=== PATIENT | male | born 1945 | race African-American/Black ===

== ENCOUNTER 2018-08-01 10:24 | Observation (INO) | payer MEDICARE, OTHER ==
[~2018-08-01] VITALS: Ht 170.2 cm; Wt 69.9 kg
[2018-08-01] MEDS ORDERED: ASPIRIN 81 MG CHEW TAB PO ONE ×2 (10:30→13:30)
[2018-08-01 11:15] LABS: INR 0.9
[2018-08-01 11:16] LABS: PARTIAL THROMBOPLASTIN TIME 30.7 seconds (23.8-35.5)
[2018-08-01 11:23] LABS: ALANINE AMINOTRANSFERASE 16 IU/L (0-55); ALBUMIN 4.1 g/dL (3.5-5.0); ALBUMIN/GLOBULIN RATIO 1.5 (0.8-2.0); ALKALINE PHOSPHATASE 73 IU/L (40-150); ANION GAP 18.1 mmol/L (8-16); BLOOD UREA NITROGEN 19 mg/dL (7-26); BUN/CREATININE RATIO 15 (6-25); CALCIUM 9.9 mg/dL (8.4-10.2); CARBON DIOXIDE 23 mmol/L (22-29); CHLORIDE 104 mmol/L (98-107); CREATINE KINASE 155 IU/L (30-200); CREATININE, SERUM 1.31 mg/dL (0.72-1.25); EST GLOMERULAR FILTRATION RATE > 60 ML/MIN (60-); GLUCOSE 181 mg/dL (74-118); POTASSIUM 4.1 mmol/L (3.5-5.1); SODIUM 141 mmol/L (136-145)
--- NOTE | 2018-08-01 11:28 | Diagnostic Imaging Report ---
EXAMINATION: CHEST 2 VIEWS INDICATION: Anterior chest pain for one week COMPARISON: Chest x-ray 05/12/2010 FINDINGS: PA and lateral views TUBES and LINES: None. LUNGS: Lungs are well inflated. There is no evidence of pneumonia or pulmonary edema. PLEURA: No pleural effusion or pneumothorax. HEART AND MEDIASTINUM: The heart is normal in size. The hilum appears more prominent compared to previous exam. The left hilum is normal. The trachea is midline. BONES AND SOFT TISSUES: No focal osseous lesions. Soft tissues are unremarkable. UPPER ABDOMEN: No free air under the diaphragm. IMPRESSION: Increasing fullness of the right hilum may be due to lymphadenopathy, vascular structures or patient positioning. Consider further characterization with CT of the chest. This can be performed on an outpatient basis. No new pulmonary findings. Signed by: Dr. Roel Saunders MD on 08/01/2018 11:25 AM
[2018-08-01 11:41] LABS: BASOPHILS % 0.5 % (0.0-1.0); EOSINOPHILS # (AUTO) 0.4 (0.0-0.4); EOSINOPHILS % 7.5 % (0.0-6.0); HEMATOCRIT 32.8 % (38.2-49.6); LYMPHOCYTES # (AUTO) 1.2 (1.0-3.2); LYMPHOCYTES % 22.2 % (18.0-39.1); MEAN CORPUSCULAR HEMOGLOBIN 32.8 pg (28-32); MEAN CORPUSCULAR HGB CONC 33.5 g/dL (31-35); MEAN CORPUSCULAR VOLUME 97.9 fL (81-99); MONOCYTES # (AUTO) 0.5 (0.2-0.8); MONOCYTES % 9.3 % (4.4-11.3); NEUTROPHILS # (AUTO) 3.4 (2.1-6.9); NEUTROPHILS % 60.3 % (38.7-80.0); PLATELET COUNT 145 x10e3/uL (140-360); RED BLOOD COUNT 3.35 x10e6/uL (4.3-5.7); RED CELL DISTRIBUTION WIDTH 11.7 % (11.7-14.4)
[2018-08-01 12:33] LABS: CLARITY,URINE CLEAR (CLEAR); COLOR,URINE YELLOW (YELLOW); KETONES,URINE NEGATIVE (NEGATIVE); LEUKOCYTE ESTERASE ,URINE NEGATIVE (NEGATIVE); NITRITE,URINE NEGATIVE (NEGATIVE); PROTEIN,URINE DIPSTICK NEGATIVE (NEGATIVE)
[2018-08-01 12:34] LABS: BILIRUBIN,URINE NEGATIVE (NEGATIVE); URINE UROBILINOGEN 0.2 mg/dL (0.2 - 1)
[2018-08-01 12:38] LABS: BACTERIA,URINE RARE /HPF; EPITHELIAL CELLS,URINE RARE /LPF; RBC,URINE 0-5 /HPF (0-5); WBC,URINE (MAN) 0-5 /HPF (0-5)
[2018-08-01] MEDS ORDERED: SODIUM CHLORIDE 0.9% 1000ML 1,000 ML IV SCH (12:55)
[2018-08-01] MEDS ORDERED: ONDANSETRON HCL INJ 2 MG/ML VIAL IV PRN ×2 (13:00→19:00)
[2018-08-01] MEDS ORDERED: ALFUZOSIN HCL10 MG PO (13:23)
[2018-08-01] MEDS ORDERED: METFORMIN HCL500 MG PO (13:23)
[2018-08-01] MEDS ORDERED: GLIMEPIRIDE2 MG PO (13:23)
[2018-08-01] MEDS ORDERED: LISINOPRIL-HCT1 EACH PO (13:23)
[2018-08-01] MEDS ORDERED: ATORVASTATIN CA10 MG PO (13:23)
[2018-08-01] MEDS ORDERED: HYDRALAZINE HCL 20 MG/ML VIAL IV ONE (14:00)
--- OUTSIDE RECORDS SUMMARY | 2018-08-01 14:16 | XMS REPORT ---
Author Author [facility] Address Unknown Phone Unavailable Care Team Providers Care Repairer Cylinder Heads Name Role Phone Loida LEAL Unavailable Unavailable Problems This patient has no known problems. Allergies, Adverse Reactions, Alerts This patient has no known allergies or adverse reactions. Medications This patient has no known medications. Results Test Description Test Time Test Comments Text Results Atomic Results Result Comments CHEST 2 VIEWS 2018-08-01 11:20:00 [place] [address] Patient Name: ZEKE YANG MR #: [id number] : 1945 Age/Sex: 73/M Req #: [id number] Adm Physician: Ordered by: LATESHA CASTELLANO NP Report #: [id number] Location: ER Room/Bed: Procedure: [id number] DX/CHEST 2 VIEWS Exam Date: Exam Time: REPORT STATUS: Signed EXAMINATION: CHEST 2 VIEWS INDICATION: Anterior chest pain for one week COMPARISON: Chest x-ray 05/12/2010 FINDINGS: PA and lateral views TUBES and LINES: None. LUNGS: Lungs are well inflated. There is no evidence of pneumonia or pulmonary edema. PLEURA: No pleural effusion or pneumothorax. HEART AND MEDIASTINUM: The heart is normal in size. The hilum appears more prominent compared to previous exam. The left hilum is normal. The trachea is midline. BONES AND SOFT TISSUES: No focal osseous lesions. Soft tissues are unremarkable. UPPER ABDOMEN: No free air under the diaphragm. IMPRESSION: Increasing fullness of the right hilum may be due to lymphadenopathy, vascular structures or patient positioning. Consider further characterization with CT of the chest. This can be performed on an outpatient basis. No new pulmonary findings. Signed by: Dr. Flaquito Saunders MD on 08/01/2018 11:25 AM Dictated By: FLAQUITO SAUNDERS MD 1125 Transcribed By: INDY on 08/01/18 1125 COPY TO: LATESHA CASTELLANO NP
[2018-08-01] MEDS ORDERED: DILTIAZEM HCL 5 MG/ML 5 ML VIAL IV ONE (14:45)
[2018-08-01] MEDS ORDERED: AMIODARONE HCL 900 MG in DEXTROSE 5% 500ML 500 ML IV ONE (15:15)
[2018-08-01] MEDS ORDERED: AMIODARONE HCL 150MG 100 ML IV ONE (15:15)
[2018-08-01] MEDS ORDERED: INSULIN LISPRO 100 UNIT/1 ML 3ML VIAL SQ SCH ×2 (16:30→21:00)
--- NOTE | 2018-08-01 16:58 | Diagnostic Imaging Report ---
EXAMINATION: CT scan of the chest without contrast. TECHNIQUE: Spiral CT images of the chest were performed from the lung apices to the level of the adrenal glands. No intravenous contrast was administered per referring physician request Coronal and sagittal reformatted images were obtained. COMPARISON: Chest radiograph earlier 08/01/2018 CLINICAL HISTORY:Right hilar fullness on chest radiograph DISCUSSION: ABSENCE OF INTRAVENOUS CONTRAST DECREASES SENSITIVITY FOR DETECTION OF FOCAL LESIONS AND VASCULAR PATHOLOGY. LINES/TUBES: None. LUNGS AND AIRWAYS: The lungs are clear. No pulmonary nodules, masses or consolidation. Trachea, mainstem bronchi, and central lobar and segmental bronchi are patent. PLEURA: No pneumothorax or pleural effusions. HEART AND MEDIASTINUM: Visualized portions of the thyroid gland are normal. Atherosclerotic calcifications of the aortic annulus and coronary arteries. Normal heart size without pericardial effusion. No ectasia or aneurysmal dilatation of the thoracic aorta. The pulmonary outflow tract is of normal caliber. No axillary, hilar, or mediastinal lymphadenopathy. Close interposition of the right superior pulmonary vein and right pulmonary artery is seen on series 2 image 58 and series 401, image 44 and likely accounts for the abnormality described on the chest radiograph. LYMPH NODES: There is no mediastinal, hilar or axillary lymphadenopathy. ABDOMEN: The visualized portions of the liver, gallbladder, pancreas, spleen, and adrenals are unremarkable. Nonspecific perinephric fat stranding of the partially visualized upper poles of the kidneys. BONES AND SOFT TISSUES: No osseous destructive lesions. Asymmetry of the sternoclavicular joints is likely chronic in nature with associated left sternoclavicular calcifications. IMPRESSION: No acute thoracic CT abnormalities. Right hilar fullness described on the comparison chest radiograph is shown to represent summation of prominent right pulmonary artery and right superior pulmonary vein. Signed by: Dr. Sherman Rodriguez M.D. on 08/01/2018 4:54 PM
[2018-08-01] MEDS ORDERED: METFORMIN HCL 500 MG TAB PO SCH (17:00)
[2018-08-01] MEDS ORDERED: DRONEDARONE 400 MG TAB PO SCH (17:00)
--- NOTE | 2018-08-01 17:45 | Consultation ---
DATE OF CONSULTATION: August 01, 2018 REASON FOR CONSULTATION: Chest pain and atrial arrhythmias. HISTORY OF PRESENT ILLNESS: Mr. Smith is a 73-year-old gentleman with past medical history of hypertension, type 2 diabetes diagnosed 15 years ago, hyperlipidemia diagnosed 10 years ago who comes into this institution after being told by his primary care office to go to the emergency room for chest pain. The patient was in usual state of health up until about one week ago when he developed a point tenderness in the left parasternal region, quarter size in nature, worsened with arm in certain positions with no known alleviating factors. The patient reports the pain is not exertional in nature, but is worsened with position. He reports the pain is moderate to severe in nature and is constantly with him. He called his primary care physician's office and upon knowing that his physician was not available and no partners to see him, they advised him to go to the emergency room and he went there. While in the emergency room on telemetry monitoring, the patient went into spontaneous atrial fibrillation with rapid ventricular response, heart rate in the 150s to 170s range. He denies any symptoms with those palpitations and received Cardizem 20 mg intravenously, which lowered his heart rate down to the 40s. The patient has underlying sinus bradycardia and cardiology consultation was obtained. The patient denies any subjective palpitations with atrial fibrillation episode, and this is the first known history of this. He reports his only passing out episode was approximately 8 years ago after a GI endoscopy procedure where they dilated his esophagus and he reports passing out during that procedure. PAST MEDICAL HISTORY: 1. Hypertension, essential. 2. Type 2 diabetes diagnosed 15 years ago. 3. Hyperlipidemia diagnosed 10 years ago. 4. Benign prostatic hypertrophy on oral therapy. 5. History of GERD and esophageal dilatation. 6. History of recently diagnosed anemia, non-microcytic, is in the process to go see a scientific illustrator. PAST SURGICAL HISTORY: 1. History of right inguinal hernia repair surgery. 2. History of esophageal dilatation 8 years ago. FAMILY HISTORY: Mother in her 70s of unknown cause. Father at 94, had extreme diabetes with complications, had peripheral arterial disease, amputations and finally . SOCIAL HISTORY: He is a lifelong nonsmoker. Denies any alcohol or illicit drug use. ALLERGIES: NO KNOWN DRUG ALLERGIES. HOME MEDICATIONS: Alfuzosin 10 mg daily, atorvastatin 10 mg daily, Glimepiride 2 mg daily, lisinopril/hydrochlorothiazide 20/12.5 mg daily, metformin 1000 mg b.i.d. REVIEW OF SYSTEMS: GENERAL: Denies any fever, chills, weight changes. HEENT: No current headaches, visual complaints, sore throat or stuffy nose. RESPIRATORY: Does report taking a deep breath makes point tenderness worse. Denies any cough or wheezing . CARDIOVASCULAR: As per HPI. GI: Denies any abdominal pain, bright red blood per rectum, melena, or hematemesis. : Denies any dysuria. He does have urinary frequency, hesitancy and BPH like symptoms. MUSCULOSKELETAL: Positive for chest wall pain as noted above. PERIPHERAL VASCULAR: Denies any leg swelling, edema or typical claudication symptoms. NEUROLOGIC: Denies any focal weakness, numbness, tingling, seizures, headache, history of TIA or stroke. Remainder of the review of systems, negative, otherwise mentioned. PHYSICAL EXAMINATION VITAL SIGNS: Height of 67 inches, weight of 154 pounds. BMI is 24.1. Temperature of 99.1. Pulse of 47, bradycardiac. Blood pressure 166/90. Respiratory rate 17. GENERAL: This is a well-nourished, well-developed gentleman who is currently in no apparent distress. HEENT: Normocephalic and atraumatic. Pupils equal, round, and reactive to light. Extraocular movements are intact. Oropharynx is clear. NECK: No elevation of jugular venous pulsation. No carotid bruits. CARDIOVASCULAR: Regular rate and rhythm. Normal S1 and S2. Soft 1/6 systolic murmur at the right upper sternal border. LUNGS: Clear to auscultation bilaterally with good air entry. There is chest wall tenderness to palpation in the costochondritic space around the 5th left parasternal region and reproduces the same pain. ABDOMEN: Soft, nontender, and nondistended. Normoactive bowel sounds. No hepatosplenomegaly. BACK: No costovertebral angle tenderness. EXTREMITIES: Warm with 2+ bilateral radial pulses, 1+ to 2+ bilateral femoral pulses. There is 0 to 1+ pedal pulses. NEUROLOGIC: Cranial nerves II through XII are intact. Strength is 5/5 and grossly nonfocal. PSYCH: Normal fluent speech. Appropriate affect. No anxiety or delusions. LABORATORY DATA: White count of 5.56, hemoglobin 11.0, hematocrit 32.8, platelets of 145,000, sodium 141, potassium 4.1, chloride 104, bicarb 23, BUN 19, creatinine 1.31, glucose 181. AST 18, ALT 16, alkaline phosphatase 73, total protein 6.9, albumin of 4.1, TSH 0.708, BNP 46.4, INR 0.90. UA is unremarkable. Troponin is 0.014 x1 set. EKG reveals sinus bradycardia, heart rate in the 50s, normal axis and no ST-T wave changes. Second EKG in atrial fibrillation with rapid ventricular response and no significant ischemic changes on that EKG. Chest x-ray reveals right hilar fullness, maybe questionable lymphadenopathy. DIAGNOSES 1. Chest pain, by history most consistent with musculoskeletal chest pain, although the patient does have risk factors of coronary artery disease. Will go ahead and cycle enzymes and can pursue ischemic risk stratification as an outpatient. 2. Atrial fibrillation, paroxysmal, new diagnosis, asymptomatic. 3. 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 4. Hypertension, essential. 5. Hypercholesterolemia. 6. Type 2 diabetes. 7. 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 8. Benign prostatic hypertrophy. PLAN/RECOMMENDATIONS: 1. From a cardiovascular standpoint, we will go ahead and cycle one more enzyme to rule him out for acute myocardial infarction. 2. The patient's chest pain symptoms are very classic costochondritis and suspect this is due to some sort of physical stressor. 3. Recommend anti-inflammatory for his chest pain for the time being. 4. Will evaluate heart structurally with an echocardiogram. 5. Will monitor on telemetry and implement a rhythm control strategy with Multaq 400 mg b.i.d. 6. Will check a fecal occult blood test, and if it appears to be negative in light of his mild anemia, will go ahead and give trial of systemic anticoagulant therapy with Xarelto daily. 7. Will continue to monitor the patient while he is here. Thank you for this referral. Job#: [id number]
[2018-08-01 18:18] VITALS: BP 158/58
[2018-08-01 18:19] VITALS: BP 158/58
[2018-08-01 18:29] VITALS: BP 158/58
[2018-08-01] MEDS: DRONEDARONE 400 MG TAB PO SCH (18:55)
[2018-08-01 19:19] VITALS: BP 146/54
[2018-08-01 20:00] VITALS: BP 146/54
[2018-08-01] MEDS: HEPARIN SOD (PORCINE) 5,000 UNIT/ML VIAL SC SCH (20:35)
[2018-08-01] MEDS: INSULIN LISPRO 100 UNIT/1 ML 3ML VIAL SQ SCH (20:37)
[2018-08-01] MEDS ORDERED: ATORVASTATIN 10 MG TAB PO SCH ×2 (21:00)
[2018-08-01] MEDS ORDERED: HEPARIN SOD (PORCINE) 5,000 UNIT/ML VIAL SC SCH (21:00)
[2018-08-01 21:14] LABS: CREATINE KINASE MB 1.7 ng/mL (0-5.0)
[2018-08-01 23:49] VITALS: BP 139/52
[2018-08-02 04:24] VITALS: BP 147/66
[2018-08-02 05:07] LABS: BASOPHILS % 0.4 % (0.0-1.0); EOSINOPHILS # (AUTO) 0.3 (0.0-0.4); EOSINOPHILS % 4.4 % (0.0-6.0); HEMATOCRIT 30.9 % (38.2-49.6); HEMOGLOBIN 10.4 g/dL (14.0-18.0); LYMPHOCYTES % 26.6 % (18.0-39.1); MEAN CORPUSCULAR HGB CONC 33.7 g/dL (31-35); MEAN CORPUSCULAR VOLUME 98.1 fL (81-99); MONOCYTES # (AUTO) 0.5 (0.2-0.8); MONOCYTES % 7.4 % (4.4-11.3); NEUTROPHILS # (AUTO) 4.5 (2.1-6.9); NEUTROPHILS % 61.1 % (38.7-80.0); PLATELET COUNT 140 x10e3/uL (140-360); RED BLOOD COUNT 3.15 x10e6/uL (4.3-5.7); RED CELL DISTRIBUTION WIDTH 11.8 % (11.7-14.4)
[2018-08-02 05:17] LABS: ANION GAP 14.3 mmol/L (8-16); BLOOD UREA NITROGEN 20 mg/dL (7-26); BUN/CREATININE RATIO 16 (6-25); CALCIUM 9.1 mg/dL (8.4-10.2); CARBON DIOXIDE 25 mmol/L (22-29); CHLORIDE 106 mmol/L (98-107); CREATININE, SERUM 1.27 mg/dL (0.72-1.25); EST GLOMERULAR FILTRATION RATE > 60 ML/MIN (60-); GLUCOSE 117 mg/dL (74-118); MAGNESIUM 1.7 MG/DL (1.3-2.1); POTASSIUM 4.3 mmol/L (3.5-5.1); SODIUM 141 mmol/L (136-145)
[2018-08-02 05:26] LABS: CREATINE KINASE MB 1.3 ng/mL (0-5.0)
[2018-08-02 05:39] LABS: CHOL/HDL RATIO 2.5 (3.9-4.7)
--- NOTE | 2018-08-02 07:28 | Diagnostic Imaging Report ---
EXAMINATION: CHEST SINGLE (PORTABLE) INDICATION: Chest pain COMPARISON: Chest x-ray 08/01/2018 FINDINGS: AP view TUBES and LINES: None. LUNGS: Lungs are well inflated. Lungs are clear. There is no evidence of pneumonia or pulmonary edema. PLEURA: No pleural effusion or pneumothorax. HEART AND MEDIASTINUM: The cardiomediastinal silhouette is unremarkable. BONES AND SOFT TISSUES: No acute osseous lesion. Soft tissues are unremarkable. UPPER ABDOMEN: No free air under the diaphragm. IMPRESSION: No acute thoracic abnormality. Signed by: Dr. Giovani Lawton M.D. on 08/02/2018 7:25 AM
[2018-08-02] MEDS: INSULIN LISPRO 100 UNIT/1 ML 3ML VIAL SQ SCH ×2 (07:30→11:30)
[2018-08-02 07:33] VITALS: BP 153/68
[2018-08-02 07:43] VITALS: BP 153/68
[2018-08-02] MEDS ORDERED: METFORMIN HCL 500 MG TAB PO SCH (08:00)
[2018-08-02] MEDS: DRONEDARONE 400 MG TAB PO SCH (08:16)
[2018-08-02] MEDS: HEPARIN SOD (PORCINE) 5,000 UNIT/ML VIAL SC SCH (08:19)
[2018-08-02] MEDS ORDERED: ASPIRIN 81 MG ENTERIC COATED PO SCH ×2 (09:00)
[2018-08-02] MEDS ORDERED: XARELTO20 MG PO (09:55)
[2018-08-02] MEDS ORDERED: MULTAQ 400MG T400 MG PO (09:55)
--- NOTE | 2018-08-02 13:04 | Discharge Summary ---
PRIMARY CARE DOCTOR: Felix. FINAL DIAGNOSIS: Paroxysmal atrial fibrillation with rapid ventricular response. SECONDARY DIAGNOSES 1. Noncardiac chest pain, likely due to musculoskeletal etiology. 2. Diabetes. 3. Stage 2 chronic kidney disease. 4. Hypertension. 5. Dyslipidemia. CURRICULUM DEVELOPMENT MANAGER: Dr. Sultana, cardiology. PROCEDURES/STUDIES PERFORMED: CT of the chest. HISTORY: Per H and P. HOSPITAL COURSE: Patient initially was admitted with noncardiac chest pain; however, while in the emergency room, patient went into AFib with RVR and 20 mg of IV diltiazem was given. His heart rate went down to the 40s, but still in AFib. Of note, patient initially presented with sinus bradycardia. About 30 minutes after diltiazem, patient's heart rate went up to as high as 170s, AFib. We were about to bolus him with amiodarone IV and he self converted to sinus duong and has remained in sinus duong since. Patient was evaluated by cardiology. Multaq was started. Xarelto was started for stroke prophylaxis. Patient has 3 negative troponins; therefore, no myocardial infarction. On initial chest x-ray, patient has some right hilar fullness. Therefore, a chest CT was done which was normal. Patient was seen and examined today. CONDITION ON DISCHARGE: Stable. DISCHARGE MEDICATIONS: Please see medication reconciliation form. FOLLOWUP: He will follow up with his primary care doctor in 1 week. MELIA PHILLIPS M.D. Job#: [id number] [place]
[2018-08-02 13:06] VITALS: BP 161/65
== END 2018-08-02 13:51 | disposition home or self-care (01) ==
LOC: ER 10:24 → INTOOBSV 14:14 → ERHOLD 14:14 → OBSVTOIN 14:14 → IMCU 18:04
PROVIDERS: ADMIT Internal Medicine; ATTEND Internal Medicine
DX: I48.0 Paroxysmal atrial fibrillation (principal); R07.89 Other chest pain; I49.5 Sick sinus syndrome; E78.5 Hyperlipidemia, unspecified; E11.22 Type 2 diabetes mellitus with diabetic chronic kidney disease; I12.9 Hypertensive chronic kidney disease with stage 1 through stage 4 chronic kidney disease, or unspecified chronic kidney disease; N18.2 Chronic kidney disease, stage 2 (mild); Z83.3 Family history of diabetes mellitus; Z82.49 Family history of ischemic heart disease and other diseases of the circulatory system; N40.0 Benign prostatic hyperplasia without lower urinary tract symptoms; K21.9 Gastro-esophageal reflux disease without esophagitis; D64.9 Anemia, unspecified
CPT/HCPCS: 36415 ×2; 71045; 71046; 71250; 80048; 80053; 80061; 81001; 82550 ×2; 82553 ×2; 82948 ×2; 83735; 83880; 84443; 84484 ×2; 85025 ×2; 85610; 85730; 93005; 93306; 99284; G0378 ×2; J0360; J1644 ×2; J7030; J7060

== ENCOUNTER 2018-09-14 11:13 | Observation (INO) | payer MEDICARE, OTHER ==
[~2018-09-14] VITALS: Ht 170.2 cm; Wt 68.5 kg
[~2018-09-14 11:13] MED LIST: ALFUZOSIN HCL10 MG PO; ATORVASTATIN CA10 MG PO; GLIMEPIRIDE2 MG PO; LISINOPRIL-HCT1 EACH PO; METFORMIN HCL500 MG PO; MULTAQ 400MG T400 MG PO; XARELTO20 MG PO
--- OUTSIDE RECORDS SUMMARY | 2018-09-14 11:17 | XMS REPORT | Clinical Summary ---
Author Author [facility] Organization [facility] Address Unknown Phone Unavailable Care Team Providers Care Latex Caster Name Role Phone Tamie Peña PCP Allergies No Known Allergies Medications End Date Status Medication Sig Dispensed Refills Start Date Active alfuzosin (UROXATRAL) 10 Take 10 mg by 0 mg 24 hr tablet mouth daily. Active aspirin 81 MG EC tablet Take 81 mg by 0 mouth daily. Active brimonidine-timolol 1 drop 2 0 (COMBIGAN) 0.2-0.5 % (two) times ophthalmic solution daily. Active glimepiride (AMARYL) 2 MG Take 2 mg by 0 tablet mouth 2 (two) times daily. Active latanoprost (XALATAN) 1 drop 0 0.005 % ophthalmic nightly. solution Active lisinopril-hydroCHLOROthi Take 1 tablet 0 azide by mouth (PRINZIDE,ZESTORETIC) daily. 20-12.5 mg per tablet Active metFORMIN (GLUCOPHAGE) Take 1,000 mg 0 1000 MG tablet by mouth 2 (two) times daily with breakfast and dinner. Active dronedarone (MULTAQ) 400 Take 400 mg 0 mg tablet by mouth daily. Active atorvastatin (LIPITOR) 40 Take 1 tablet 90 tablet 3 MG tablet (40 mg total) 8 by mouth daily. Active nitroglycerin (NITROSTAT) Place 1 90 tablet 0 0.4 MG SL tablet tablet (0.4 8 mg total) under the tongue every 5 (five) minutes as needed for Chest pain. 08/27/2019 Active metoprolol (LOPRESSOR) 25 Take 0.5 90 tablet 3 11/14/201 MG tablet tablets (12.5 8 mg total) by mouth 2 (two) times daily. 08/27/2018 Discontinued atorvastatin (LIPITOR) 10 Take 10 mg by 0 MG tablet mouth daily. Active Problems Problem Noted Date Abnormal stress test 08/26/2018 Encounters Care Team Description Date Type Specialty Deric Jerez MD L CATH & CORONARY ANGIOS 08/26/2018 Surgery Deric Jerez MD 08/26/2018 Hospital Cardiology - Encounter 08/27/2018 after 09/13/2017 Social History Date Tobacco Use Types Packs/Day Years Used Never Smoker Alcohol Use Drinks/Week oz/Week Comments No Alcohol Habits Answer Date Recorded How often do you have a drink containing alcohol? Never 08/26/2018 How many drinks containing alcohol do you have on Not asked a typical day when you are drinking? How often do you have six or more drinks on one Not asked occasion? Sex Assigned at Date Recorded Not on file Industry Job Start Date Occupation Not on file Not on file Not on file Travel End Travel History Travel Start No recent travel history available. Last Filed Vital Signs Time Taken Vital Sign Reading 08/27/2018 8:00 AM [employer] Blood Pressure 173/74 08/27/2018 8:00 AM [employer] Pulse 47 08/27/2018 8:00 AM [employer] Temperature 36.7 C (98 F) 08/27/2018 8:00 AM [employer] Respiratory Rate 18 08/27/2018 8:00 AM [employer] Oxygen Saturation 99% - Inhaled Oxygen - Concentration 08/27/2018 8:00 AM [employer] Weight 69.3 kg (152 lb 12.8 oz) 08/26/2018 10:59 AM [employer] Height 170.2 cm (5' 7") 08/27/2018 8:00 AM [employer] Body Mass Index 23.93 Plan of Treatment Not on file Procedures Comments Procedure Name Priority Date/Time Associated Diagnosis CARDIAC CATH REPORT - 08/28/2018 SCAN 2:05 PM [employer] RHYTHM STRIP - SCAN 08/28/2018 2:05 PM [employer] REPORT OF PROCEDURE - 08/28/2018 ENDOSCOPY SCAN 2:05 PM [employer] POCT-GLUCOSE METER Routine 08/27/2018 7:28 AM [employer] CBC (HEMOGRAM ONLY) Routine 08/27/2018 4:12 AM [employer] BASIC METABOLIC PANEL (7) Routine 08/27/2018 4:12 AM [employer] POCT-ACT Routine 08/26/2018 9:39 PM [employer] POCT-ACT Routine 08/26/2018 8:55 PM [employer] POCT-ACT Routine 08/26/2018 7:41 PM [employer] L CATH & CORONARY ANGIOS 08/26/2018 Abnormal stress test 6:50 PM [employer] Case Notes POP6 POCT-ACT Routine 08/26/2018 5:41 PM [employer] POCT-ACT Routine 08/26/2018 5:29 PM [employer] POCT-GLUCOSE METER Routine 08/26/2018 12:49 PM [employer] after 09/13/2017 Results * CARDIAC CATH REPORT - SCAN (08/28/2018 2:05 PM [employer]) Narrative Performed At * RHYTHM STRIP - SCAN (08/28/2018 2:05 PM [employer]) Narrative Performed At * EKG-SCANNED (08/28/2018 2:05 PM [employer]) Narrative Performed At * POC-Glucose meter (08/27/2018 7:28 AM [employer]) Only the most recent of 2 results within the time period is included. POC-Glucose Meter 157 (H)Comment: TESTED AT 70 - 110 mg/dL [facility] BSC [id number] Specimen Blood Performing Organization Address City/State/Zipcode Phone Number [address] [address] [facility] * CBC (Hemogram only) (08/27/2018 4:12 AM [employer]) WBC 4.8 3.5 - 10.5 K/L [facility] RBC 3.81 (L) 4.63 - 6.08 M/L [facility] Hemoglobin 12.5 (L) 13.7 - 17.5 GM/DL [facility] Hematocrit 39.6 (L) 40.1 - 51.0 % [facility] MCV 103.9 (H) 79.0 - 92.2 fL [facility] MCH 32.8 (H) 25.7 - 32.2 pg [facility] MCHC 31.6 (L) 32.3 - 36.5 GM/DL [facility] RDW 11.5 (L) 11.6 - 14.4 % [facility] Platelets 62 (L) 150 - 450 K/CU MM [facility] MPV 12.6 (H) 9.4 - 12.4 fL [facility] nRBC 0 0 - 0 /100 WBC [facility] Specimen Blood Performing Organization Address City/State/Zipcode Phone Number [facility] [address] [place] [address] [facility] * Basic metabolic panel (08/27/2018 4:12 AM [employer]) Sodium 136 136 - 145 meq/L [facility] Potassium 4.8Comment: Specimen 3.5 - 5.1 meq/L [facility] moderately hemolyzed [facility] Chloride 110 (H) 98 - 107 meq/L [facility] CO2 18 (L) 22 - 29 meq/L [facility] BUN 17 7 - 21 mg/dL [facility] Creatinine 1.16Comment: Specimen 0.57 - 1.25 mg/dL [facility] moderately hemolyzed [facility] Glucose 114 (H) 70 - 105 mg/dL [facility] Calcium 9.0 8.4 - 10.2 mg/dL [facility] EGFR 75Comment: ESTIMATED GFR IS mL/min/1.[address] [facility] NOT ACCURATE CREATININE [facility] CLEARANCE IN PREDICTING GLOMERULAR FILTRATION RATE. ESTIMATED GFR IS NOT APPLICABLE FOR DIALYSIS PATIENTS. Specimen Blood Performing Organization Address City/[facility] Hospital/Zipcode Phone Number [facility] [address] [place] [address] [facility] * POC ACTIVATED CLOTTING TIME (08/26/2018 9:39 PM [employer]) Only the most recent of 5 results within the time period is included. Activated Clotting Time 142Comment: TESTED AT [facility] sec [address] [address] [facility] Specimen Blood Performing Organization Address City/[facility] Phone Number [facility] [address] [place] [address] [facility] after 09/13/2017 Insurance Payer Benefit Subscriber ID Type Phone Address Plan / Group [facility] HMO xxxxxxxxx HMO/POS CARE POS SELECT CHOICE Advance Directives For more information, please contact: [address] [address] Date Inactivated Comments Code Status Date Activated Full Code 08/26/2018 11:35 AM This code status was determined by: Patient
[2018-09-14] MEDS ORDERED: ASPIRIN 81 MG CHEW TAB PO NR (12:00)
[2018-09-14 12:19] LABS: BASOPHILS % 0.5 % (0.0-1.0); EOSINOPHILS # (AUTO) 0.4 (0.0-0.4); EOSINOPHILS % 6.2 % (0.0-6.0); HEMATOCRIT 35.4 % (38.2-49.6); HEMOGLOBIN 11.8 g/dL (14.0-18.0); LYMPHOCYTES # (AUTO) 1.3 (1.0-3.2); LYMPHOCYTES % 22.9 % (18.0-39.1); MEAN CORPUSCULAR HEMOGLOBIN 32.1 pg (28-32); MEAN CORPUSCULAR HGB CONC 33.3 g/dL (31-35); MEAN CORPUSCULAR VOLUME 96.2 fL (81-99); MONOCYTES # (AUTO) 0.5 (0.2-0.8); MONOCYTES % 8.3 % (4.4-11.3); NEUTROPHILS # (AUTO) 3.5 (2.1-6.9); NEUTROPHILS % 61.7 % (38.7-80.0); PLATELET COUNT 152 x10e3/uL (140-360); RED BLOOD COUNT 3.68 x10e6/uL (4.3-5.7); RED CELL DISTRIBUTION WIDTH 11.4 % (11.7-14.4)
[2018-09-14 12:29] LABS: INR 1.02; PROTHROMBIN TIME 14.3 seconds (11.9-14.5)
[2018-09-14 12:30] LABS: PARTIAL THROMBOPLASTIN TIME 32.5 seconds (23.8-35.5)
[2018-09-14 12:34] LABS: ALANINE AMINOTRANSFERASE 43 IU/L (0-55); ALBUMIN 4.6 g/dL (3.5-5.0); ALBUMIN/GLOBULIN RATIO 1.4 (0.8-2.0); ALKALINE PHOSPHATASE 81 IU/L (40-150); ANION GAP 14.5 mmol/L (8-16); BLOOD UREA NITROGEN 21 mg/dL (7-26); BUN/CREATININE RATIO 14 (6-25); CARBON DIOXIDE 22 mmol/L (22-29); CHLORIDE 104 mmol/L (98-107); CREATINE KINASE 268 IU/L (30-200); CREATININE, SERUM 1.48 mg/dL (0.72-1.25); EST GLOMERULAR FILTRATION RATE 56 ML/MIN (60-); GLUCOSE 181 mg/dL (74-118); POTASSIUM 4.5 mmol/L (3.5-5.1); SODIUM 136 mmol/L (136-145)
--- NOTE | 2018-09-14 13:21 | Diagnostic Imaging Report ---
EXAMINATION: CHEST SINGLE (PORTABLE) INDICATION: Chest pain. COMPARISON: None FINDINGS: TUBES and LINES: None. LUNGS: Lungs are well inflated. Lungs are clear. There is no evidence of pneumonia or pulmonary edema. PLEURA: No pleural effusion or pneumothorax. HEART AND MEDIASTINUM: The cardiomediastinal silhouette is unremarkable. BONES AND SOFT TISSUES: No acute osseous lesion. Soft tissues are unremarkable. UPPER ABDOMEN: No free air under the diaphragm. IMPRESSION: No acute thoracic abnormality. Signed by: Dr. Leo Sequeira M.D. on 09/14/2018 1:17 PM
[2018-09-14] MEDS ORDERED: ASPIRIN 81 MG CHEW TAB PO PRN (13:45)
--- OUTSIDE RECORDS SUMMARY | 2018-09-14 14:42 | XMS REPORT | Clinical Summary ---
Author Author NATALEE [facility] Organization [facility] Address Unknown Phone Unavailable Care Team Providers Care Assistant Laboratory Director Name Role Phone Tamie Peña PCP Allergies [...] Taken Vital Sign Reading 08/27/2018 8:00 AM OFFICE MACHINE REPAIR [employer]PER[employer] Blood Pressure 173/74 08/27/2018 8:00 AM OFFICE MACHINE REPAIR [employer] SUPERVISOR Pulse 47 08/27/2018 8:00 AM OFFICE MACHINE REPAIR [employer] SUPERVISOR Temperature 36.7 C (98 F) 08/27/2018 8:00 AM OFFICE MACHINE REPAIR [employer] SUPERVISOR Respiratory Rate 18 08/27/2018 8:00 AM OFFICE MACHINE REPAIR [employer] SUPERVISOR Oxygen Saturation 99% - Inhaled Oxygen - Concentration 08/27/2018 8:00 AM OFFICE MACHINE REPAIR [employer] SUPERVISOR Weight 69.3 kg (152 lb 12.8 oz) 08/26/2018 10:59 AM OFFICE MACHINE REPAIR [employer] SUPER[employer]OR Height 170.2 cm (5' 7") 08/27/2018 8:00 AM OFFICE MACHINE REPAIR [employer] SUPERVISOR Body Mass Index 23.93 Plan of Treatment Not on file Procedures Comments Procedure Name Priority Date/Time Associated Diagnosis CARDIAC CATH REPORT - 08/28/2018 SCAN 2:05 PM OFFICE MACHINE REPAIR [employer] SUPERVISOR RHYTHM STRIP - SCAN 08/28/2018 2:05 PM OFFICE MACHINE REPAIR [employer] SUPERVISOR REPORT OF PROCEDURE - 08/28/2018 ENDOSCOPY SCAN 2:05 PM OFFICE MACHINE REPAIR [employer] SUPERVISOR POCT-GLUCOSE METER Routine 08/27/2018 7:28 AM OFFICE MACHINE REPAIR [employer] SUPERVISOR CBC (HEMOGRAM ONLY) Routine 08/27/2018 4:12 AM OFFICE MACHINE REPAIR [employer] SUPERVISOR BASIC METABOLIC PANEL (7) Routine 08/27/2018 4:12 AM OFFICE MACHINE REPAIR [employer] SUPERVISOR POCT-ACT Routine 08/26/2018 9:39 PM OFFICE MACHINE REPAIR [employer] SUPERVISOR POCT-ACT Routine 08/26/2018 8:55 PM OFFICE MACHINE REPAIR [employer] SUPERVISOR POCT-ACT Routine 08/26/2018 7:41 PM OFFICE MACHINE REPAIR [employer]OP SUPERVISOR L CATH & CORONARY ANGIOS 08/26/2018 Abnormal stress test 6:50 PM OFFICE MACHINE REPAIR [employer] SUPERVISOR Case Notes POP6 POCT-ACT Routine 08/26/2018 5:41 PM OFFICE MACHINE REPAIR [employer] SUPERVISOR POCT-ACT Routine 08/26/2018 5:29 PM OFFICE MACHINE REPAIR [employer] SUPERVISOR POCT-GLUCOSE METER Routine 08/26/2018 12:49 PM OFFICE MACHINE REPAIR [employer] SUPERVISOR after 09/13/2017 Results * CARDIAC CATH REPORT - SCAN (08/28/2018 2:05 PM OFFICE MACHINE REPAIR [employer]OP SUPERVISOR) Narrative Performed At * RHYTHM STRIP - SCAN (08/28/2018 2:05 PM OFFICE MACHINE REPAIR [employer]OP SUPERVISOR) Narrative Performed At * EKG-SCANNED (08/28/2018 2:05 PM OFFICE MACHINE REPAIR [employer]OP SUPERVISOR) Narrative Performed At * POC-Glucose meter (08/27/2018 7:28 AM OFFICE MACHINE REPAIR [employer]OP SUPERVISOR) Only the most recent of 2 results within the time period is included. POC-Glucose Meter 157 (H)Comment: TESTED AT 70 - 110 mg/dL [facility] [address] [facility] [id number] Specimen Blood Performing Organization Address City/State/Zipcode Phone Number [address] [address] [facility] * CBC (Hemogram only) (08/27/2018 4:12 AM OFFICE MACHINE REPAIR [employer]OP SUPERVISOR) WBC 4.8 3.5 - 10.5 K/L [facility] RBC 3.81 (L) 4.63 - 6.08 M/L [facility] Hemoglobin 12.5 (L) 13.7 - 17.5 GM/DL [facility] Hematocrit 39.6 (L) 40.1 - 51.0 % [facility] MCV 103.9 (H) 79.0 - 92.2 fL [facility] MCH 32.8 (H) 25.7 - 32.2 pg [facility] MCHC 31.6 (L) 32.3 - 36.5 GM/DL [facility] RDW 11.5 (L) 11.6 - 14.4 % [facility] Platelets 62 (L) 150 - 450 K/CU MM [facility] MPV 12.6 (H) 9.4 - 12.4 fL [facility] nRBC 0 0 - 0 /100 WBC [facility] Specimen Blood Performing Organization Address City/State/Zipcode Phone Number [facility] [address] [place] [address] [facility] * Basic metabolic panel (08/27/2018 4:12 AM OFFICE MACHINE REPAIR [employer] SUPERVISOR) Sodium 136 136 - 145 meq/L [facility] Potassium 4.8Comment: Specimen 3.5 - 5.1 meq/L [facility] moderately hemolyzed [facility] Chloride 110 (H) 98 - 107 meq/L [facility] CO2 18 (L) 22 - 29 meq/L [facility] BUN 17 7 - 21 mg/dL [facility] Creatinine 1.16Comment: Specimen 0.57 - 1.25 mg/dL [facility] moderately hemolyzed [facility] Glucose 114 (H) 70 - 105 mg/dL [facility] Calcium 9.0 8.4 - 10.2 mg/dL [facility] EGFR 75Comment: ESTIMATED GFR IS mL/min/1.[address] [facility] NOT ACCURATE CREATININE [facility] CLEARANCE IN PREDICTING GLOMERULAR FILTRATION RATE. ESTIMATED GFR IS NOT APPLICABLE FOR DIALYSIS PATIENTS. Specimen Blood Performing Organization Address City/[facility]/Zipcode Phone Number [facility] [address] [place] [address] [facility] * POC ACTIVATED CLOTTING TIME (08/26/2018 9:39 PM OFFICE MACHINE REPAIR [employer]OP SUPERVISOR) Only the most recent of 5 results within the time period is included. Activated Clotting Time 142Comment: TESTED AT [facility] sec [address] [address] [facility] Specimen Blood Performing Organization Address City/[facility] Phone Number [facility] [address] [place] [address] [address] [facility] after 09/13/2017 Insurance Payer Benefit Subscriber ID Type Phone Address Plan / Group [facility] HMO xxxxxxxxx HMO/POS CARE POS SELECT CHOICE Advance Directives For more information, please contact: [address] [address] Date Inactivated Comments Code Status Date Activated Full Code 08/26/2018 11:35 AM This code status was determined by: Patient
[2018-09-14] MEDS ORDERED: MORPHINE SULFATE 2 MG/ML SYR IV NR (14:52)
[2018-09-14] MEDS ORDERED: HYDRALAZINE HCL 20 MG/ML VIAL IV PRN (16:15)
[2018-09-14] MEDS: INSULIN LISPRO 100 UNIT/1 ML 3ML VIAL SQ SCH ×2 (16:30→21:00)
[2018-09-14] MEDS: NIFEDIPINE CR 30 MG TAB PO SCH (16:59)
[2018-09-14] MEDS: PANTOPRAZOLE SOD 40 MG TABEC PO SCH (17:00)
[2018-09-14] MEDS: DRONEDARONE 400 MG TAB PO SCH (17:00)
[2018-09-14 17:29] VITALS: BP 200/90
[2018-09-14 17:30] VITALS: BP 200/90
[2018-09-14] MEDS ORDERED: MORPHINE SULFATE 2 MG/ML SYR IV PRN (18:00)
[2018-09-14 20:00] VITALS: BP 129/61
[2018-09-14] MEDS ORDERED: ATORVASTATIN 10 MG TAB PO SCH (21:00)
[2018-09-15] VITALS: BP 114/53
[2018-09-15 04:00] VITALS: BP 119/57
[2018-09-15 05:30] LABS: BASOPHILS % 0.7 % (0.0-1.0); EOSINOPHILS # (AUTO) 0.5 (0.0-0.4); EOSINOPHILS % 8.1 % (0.0-6.0); HEMATOCRIT 33.9 % (38.2-49.6); HEMOGLOBIN 11.4 g/dL (14.0-18.0); LYMPHOCYTES # (AUTO) 1.3 (1.0-3.2); LYMPHOCYTES % 24.1 % (18.0-39.1); MEAN CORPUSCULAR HEMOGLOBIN 32.1 pg (28-32); MEAN CORPUSCULAR HGB CONC 33.6 g/dL (31-35); MEAN CORPUSCULAR VOLUME 95.5 fL (81-99); MONOCYTES # (AUTO) 0.5 (0.2-0.8); MONOCYTES % 9.7 % (4.4-11.3); NEUTROPHILS # (AUTO) 3.2 (2.1-6.9); PLATELET COUNT 143 x10e3/uL (140-360); RED BLOOD COUNT 3.55 x10e6/uL (4.3-5.7); RED CELL DISTRIBUTION WIDTH 11.4 % (11.7-14.4)
[2018-09-15 05:50] LABS: CREATINE KINASE 129 IU/L (30-200)
[2018-09-15 06:22] LABS: ANION GAP 12.4 mmol/L (8-16); CALCIUM 9.1 mg/dL (8.4-10.2); CREATININE, SERUM 1.4 mg/dL (0.72-1.25); POTASSIUM 4.4 mmol/L (3.5-5.1)
[2018-09-15 06:24] LABS: CHOL/HDL RATIO 2.3 (3.9-4.7)
[2018-09-15] MEDS ORDERED: GLIMEPIRIDE 2 MG TAB PO SCH (07:30)
[2018-09-15 07:52] VITALS: BP 130/60
[2018-09-15] MEDS: PANTOPRAZOLE SOD 40 MG TABEC PO SCH (08:40)
[2018-09-15] MEDS: DRONEDARONE 400 MG TAB PO SCH (08:40)
[2018-09-15] MEDS: NIFEDIPINE CR 30 MG TAB PO SCH (08:40)
[2018-09-15] MEDS: INSULIN LISPRO 100 UNIT/1 ML 3ML VIAL SQ SCH (08:40)
[2018-09-15] MEDS ORDERED: HYDROCHLOROTHIAZIDE 25 MG TAB PO SCH (09:00)
[2018-09-15] MEDS ORDERED: ALFUZOSIN PO SCH (09:00)
[2018-09-15] MEDS ORDERED: METFORMIN HCL 500 MG TAB PO SCH (09:00)
[2018-09-15] MEDS ORDERED: LISINOPRIL 20 MG TAB PO SCH (09:00)
--- NOTE | 2018-09-15 10:55 | Discharge Summary ---
PRIMARY CARE DOCTOR: Felix FINAL DIAGNOSIS: Noncardiac chest pain likely due to musculoskeletal. SECONDARY DIAGNOSES 1. Sinus bradycardia. 2. Uncontrolled hypertension, better. 3. Stage 3 chronic kidney disease, stable. 4. Paroxysmal atrial fibrillation. CONSULTANTS: None PROCEDURES/STUDIES PERFORMED: None. HISTORY: Per H and P. HOSPITAL COURSE: The patient is known to me from his hospitalization about 1-1/2 months ago. The patient had paroxysmal atrial fibrillation with rapid ventricular response. Since then, he has been taking Multaq, and it appears that he has remained in sinus rhythm. The patient came in with persistent pleuritic pain for 2 months now. The patient complaining of substernal chest pain, sharp, worse with coughing, and also bilateral scapular pain worse with taking a deep breath. The patient had a heart cath at [facility] on August 27, 2018, and did not require any intervention. Given all this information, most likely this is a musculoskeletal pain, although cannot rule out pleurisy. Cannot rule out GI etiology. Protonix was empirically started. Unfortunately, I cannot give him NSAIDs due to his CKD. Also, 1-1/[address] scan without contrast was done of the chest, which was benign. Again, I cannot do a CT scan of the chest with IV contrast due to his CKD. Since he is better at this time, he is medically stable for discharge home. I will put him on Protonix twice a day for 2 weeks only. If his pain gets better, then likely this is due to a GI etiology. I would also hold his metoprolol given his sinus bradycardia. I am starting nifedipine for better blood pressure control. The patient was seen and examined today. CONDITION ON DISCHARGE: Stable. DISCHARGE MEDICATIONS: Please see medication reconciliation form. The patient is to follow up with his PCP in 1 week. MELIA PHILLIPS M.D. Job#: [id number] [place]
[2018-09-15] MEDS ORDERED: PROCARDIA XL30 MG PO (11:23)
[2018-09-15] MEDS ORDERED: PANTOPRAZOLE SO40 MG PO (11:23)
[2018-09-15 11:45] VITALS: BP 145/62
[2018-09-16] MEDS ORDERED: GLIMEPIRIDE 2 MG TAB PO SCH (08:00)
== END 2018-09-15 12:00 | disposition home or self-care (01) ==
LOC: ER 11:13 → ERHOLD 14:39 → IMCU 16:30
PROVIDERS: ADMIT Internal Medicine; ATTEND Internal Medicine
DX: R07.89 Other chest pain (principal); E78.5 Hyperlipidemia, unspecified; D64.9 Anemia, unspecified; N40.0 Benign prostatic hyperplasia without lower urinary tract symptoms; I48.0 Paroxysmal atrial fibrillation; I12.9 Hypertensive chronic kidney disease with stage 1 through stage 4 chronic kidney disease, or unspecified chronic kidney disease; N18.3 Chronic kidney disease, stage 3 (moderate); E11.22 Type 2 diabetes mellitus with diabetic chronic kidney disease; Z83.3 Family history of diabetes mellitus; Z82.49 Family history of ischemic heart disease and other diseases of the circulatory system; R00.1 Bradycardia, unspecified; Z79.84 Long term (current) use of oral hypoglycemic drugs
CPT/HCPCS: 36415 ×2; 71045; 80048; 80053; 80061; 82550 ×2; 82553 ×2; 82948 ×2; 84443; 84484 ×2; 85025 ×2; 85610; 85730; 93005; 99284; G0378 ×2; J0360; J2270; S0164 ×2

== ENCOUNTER → 2020-06-10 | Day surgery (SDC) | payer MEDICARE, OTHER ==
[2020-06-06 11:57] LABS: BASOPHILS % 0.7 % (0.0-1.0); EOSINOPHILS # (AUTO) 0.1 (0.0-0.4); EOSINOPHILS % 1.2 % (0.0-6.0); HEMATOCRIT 35.2 % (38.2-49.6); HEMOGLOBIN 11.5 g/dL (14.0-18.0); LYMPHOCYTES # (AUTO) 1.4 (1.0-3.2); LYMPHOCYTES % 23.9 % (18.0-39.1); MEAN CORPUSCULAR HEMOGLOBIN 31.6 pg (28-32); MEAN CORPUSCULAR HGB CONC 32.7 g/dL (31-35); MEAN CORPUSCULAR VOLUME 96.7 fL (81-99); MONOCYTES # (AUTO) 0.5 (0.2-0.8); MONOCYTES % 7.5 % (4.4-11.3); NEUTROPHILS % 66.4 % (38.7-80.0); PLATELET COUNT 150 x10e3/uL (140-360); RED BLOOD COUNT 3.64 x10e6/uL (4.3-5.7); RED CELL DISTRIBUTION WIDTH 11.9 % (11.7-14.4)
[~2020-06-10] MED LIST changes: +CLOPIDOGREL75 MG PO; +NITROGLYCERIN0.4 MG SL; +PANTOPRAZOLE SO40 MG PO; +PROCARDIA XL30 MG PO; +PROPOFOL IV EMULSION 10 MG/ML 20 ML VIAL ONE
[2020-06-10 13:25] VITALS: BP 139/66
--- NOTE | 2020-06-10 13:44 | Operative Report ---
DATE OF PROCEDURE: 06/10/2020 SURGEON: Klever Garcia MD PROCEDURE: EGD with biopsies. INDICATIONS FOR EGD: Heartburn, bloating, history of melena. MEDICATIONS: The patient was done under MAC, please see anesthesiologist's note. PROCEDURE IN DETAIL: With the patient in the left lateral decubitus position, the flexible fiberoptic Olympus gastroscope was introduced into the esophagus under direct visualization without any difficulty. There was some patchy erythema noted in distal esophagus. The scope was then advanced with ease into the stomach. Mucosa overlying the antrum and the body revealed some patchy erythema and [id number] edema, and biopsies were obtained and sent to stain for H. pylori. Pylorus was of normal contour and shape, was intubated with ease and the scope was advanced all the way to the second portion of the duodenum. Biopsies were obtained from the proximal second portion and duodenal bulb to rule out sprue. The scope was then withdrawn back into the stomach and retroflexed, mucosa overlying the fundus and the cardia appeared to be within normal limits. The scope was then straightened out, it was subsequently withdrawn, and the patient tolerated the procedure well. IMPRESSION: 1. Distal esophagitis, mild. 2. Gastritis, biopsied, biopsies sent to stain for Helicobacter pylori. 3. Rule out sprue. PLAN: Follow up histology. Continue Protonix 40 mg one p.o. before meals b.i.d. Klever Garcia MD [facility] /[id number] cc: Fernando Marc MD
== END | disposition home or self-care (01) ==
LOC: OR 10:08
PROVIDERS: ATTEND Internal Medicine Gastroenterology
DX: K29.70 Gastritis, unspecified, without bleeding (principal); Z86.010 Personal history of colon polyps; K20.9 Esophagitis, unspecified; K21.9 Gastro-esophageal reflux disease without esophagitis; K25.4 Chronic or unspecified gastric ulcer with hemorrhage; E11.22 Type 2 diabetes mellitus with diabetic chronic kidney disease; I12.9 Hypertensive chronic kidney disease with stage 1 through stage 4 chronic kidney disease, or unspecified chronic kidney disease; N18.9 Chronic kidney disease, unspecified; I25.10 Atherosclerotic heart disease of native coronary artery without angina pectoris; R00.1 Bradycardia, unspecified; E78.00 Pure hypercholesterolemia, unspecified; Z01.810 Encounter for preprocedural cardiovascular examination; Z01.812 Encounter for preprocedural laboratory examination; Z11.59 Encounter for screening for other viral diseases; Z79.02 Long term (current) use of antithrombotics/antiplatelets; Z79.84 Long term (current) use of oral hypoglycemic drugs; Z95.5 Presence of coronary angioplasty implant and graft
CPT/HCPCS: 36415 ×2; 43239; 82948; 85025; 88305; 88312; 93005; J2704; U0002

== ENCOUNTER → 2020-09-21 | Outpatient (CLI) | payer MEDICARE, OTHER ==
[~2020-09-21] MED LIST changes: -PROPOFOL IV EMULSION 10 MG/ML 20 ML VIAL ONE
== END ==
LOC: US 07:51
PROVIDERS: ATTEND Internal Medicine Gastroenterology
DX: R14.0 Abdominal distension (gaseous) (principal)
CPT/HCPCS: 76700

== ENCOUNTER → 2020-12-14 | Day surgery (SDC) | payer MEDICARE, OTHER ==
[2020-12-09 10:02] LABS: BASOPHILS % 0.5 % (0.0-1.0); EOSINOPHILS # (AUTO) 0.1 (0.0-0.4); EOSINOPHILS % 1.5 % (0.0-6.0); HEMATOCRIT 37.7 % (38.2-49.6); HEMOGLOBIN 12.4 g/dL (14.0-18.0); LYMPHOCYTES # (AUTO) 1.3 (1.0-3.2); LYMPHOCYTES % 21.8 % (18.0-39.1); MEAN CORPUSCULAR HEMOGLOBIN 31.2 pg (28-32); MEAN CORPUSCULAR HGB CONC 32.9 g/dL (31-35); MEAN CORPUSCULAR VOLUME 94.7 fL (81-99); MONOCYTES # (AUTO) 0.5 (0.2-0.8); MONOCYTES % 8.8 % (4.4-11.3); NEUTROPHILS # (AUTO) 4.1 (2.1-6.9); NEUTROPHILS % 67.1 % (38.7-80.0); PLATELET COUNT 143 x10e3/uL (140-360); RED BLOOD COUNT 3.98 x10e6/uL (4.3-5.7); RED CELL DISTRIBUTION WIDTH 11.6 % (11.7-14.4)
[2020-12-09 10:23] LABS: ALBUMIN 3.9 g/dL (3.5-5.0); ALBUMIN/GLOBULIN RATIO 1.3 (0.8-2.0); ANION GAP 11.2 mmol/L (8-16); CHOL/HDL RATIO 2.9 (3.9-4.7); CREATININE, SERUM 1.8 mg/dL (0.72-1.25); POTASSIUM 4.2 mmol/L (3.5-5.1)
[2020-12-09 10:29] LABS: PROTHROMBIN TIME 13.8 seconds (11.9-14.5)
[2020-12-09 10:30] LABS: PARTIAL THROMBOPLASTIN TIME 28.8 seconds (23.8-35.5)
[~2020-12-14] VITALS: Ht 170.2 cm; Wt 68.5 kg
[2020-12-14] VITALS (11 sets, daily range): BP systolic 160–187; BP diastolic 47–88
[~2020-12-14] MED LIST changes: +ASPIRIN 325 MG TAB ONE; +CLOPIDOGREL BISULFATE 75 MG TAB ONE; +FENTANYL CITRATE/PF 100MCG/2 ML INJ ONE; +FLOMAX0.4 MG PO; +HEPARIN SOD (PORCINE) 1000 UNIT/ML 30ML ONE; +HEPARIN SOD/SOD CHLORIDE 2,000 ML ONE; +IOPAMIDOL 300MG/ML 100 ML INFUS..BTL IV ONE; +LIDOCAINE HCL 2% LOCAL 20 ML VIAL ONE; +MIDAZOLAM HCL 2 MG/2 ML VIAL ONE; +NITROGLYCERIN/D5W 200 MCG/ML 250 ML ONE; +SODIUM CHLORIDE 0.9% 1000ML 1,000 ML ONE; +VERAPAMIL HCL 2.5 MG/ML 2 ML VIAL ONE
== END | disposition home or self-care (01) ==
LOC: CATH LAB 07:05
PROVIDERS: ATTEND Internal Medicine Cardiovascular Disease
DX: I70.213 Atherosclerosis of native arteries of extremities with intermittent claudication, bilateral legs (principal); I25.10 Atherosclerotic heart disease of native coronary artery without angina pectoris; I10 Essential (primary) hypertension; E78.5 Hyperlipidemia, unspecified; R00.2 Palpitations; R55 Syncope and collapse; E11.8 Type 2 diabetes mellitus with unspecified complications; Z01.812 Encounter for preprocedural laboratory examination; Z20.822 Contact with and (suspected) exposure to COVID-19; Z79.02 Long term (current) use of antithrombotics/antiplatelets; Z79.82 Long term (current) use of aspirin; Z79.84 Long term (current) use of oral hypoglycemic drugs
CPT/HCPCS: 36415 ×2; 37231; 75710; 80053; 80061; 82948; 85025; 85610; 85730; C1724; C1769 ×3; C1874; C1887 ×2; J1644; J2001; J2250; J3010; J7030; Q9967; U0002; 36247; 37228; 37229; 37230; 75630; 99152; 99153; C1725

== ENCOUNTER → 2021-02-20 | Outpatient (CLI) | payer MEDICARE, OTHER ==
[~2021-02-20] MED LIST changes: -ASPIRIN 325 MG TAB ONE; +ASPIRIN EC81 MG PO; -CLOPIDOGREL BISULFATE 75 MG TAB ONE; -FENTANYL CITRATE/PF 100MCG/2 ML INJ ONE; -HEPARIN SOD (PORCINE) 1000 UNIT/ML 30ML ONE; -HEPARIN SOD/SOD CHLORIDE 2,000 ML ONE; -IOPAMIDOL 300MG/ML 100 ML INFUS..BTL IV ONE; -LIDOCAINE HCL 2% LOCAL 20 ML VIAL ONE; -MIDAZOLAM HCL 2 MG/2 ML VIAL ONE; -NITROGLYCERIN/D5W 200 MCG/ML 250 ML ONE; -SODIUM CHLORIDE 0.9% 1000ML 1,000 ML ONE; +TRADJENTA5 MG PO; -VERAPAMIL HCL 2.5 MG/ML 2 ML VIAL ONE
[2021-02-20 09:08] LABS: BASOPHILS % 0.6 % (0.0-1.0); EOSINOPHILS # (AUTO) 0.1 (0.0-0.4); EOSINOPHILS % 1.9 % (0.0-6.0); HEMATOCRIT 33.3 % (38.2-49.6); HEMOGLOBIN 11.3 g/dL (14.0-18.0); LYMPHOCYTES # (AUTO) 1.4 (1.0-3.2); MEAN CORPUSCULAR HEMOGLOBIN 32.4 pg (28-32); MEAN CORPUSCULAR HGB CONC 33.9 g/dL (31-35); MEAN CORPUSCULAR VOLUME 95.4 fL (81-99); MONOCYTES # (AUTO) 0.5 (0.2-0.8); MONOCYTES % 10.1 % (4.4-11.3); NEUTROPHILS # (AUTO) 2.9 (2.1-6.9); NEUTROPHILS % 59.2 % (38.7-80.0); PLATELET COUNT 135 x10e3/uL (140-360); RED BLOOD COUNT 3.49 x10e6/uL (4.3-5.7); RED CELL DISTRIBUTION WIDTH 11.9 % (11.7-14.4)
== END | disposition home or self-care (01) ==
LOC: RAD 14:30 → EDSTATUS 02-23 10:30
PROVIDERS: ATTEND Internal Medicine Gastroenterology
DX: Z01.810 Encounter for preprocedural cardiovascular examination (principal); Z01.812 Encounter for preprocedural laboratory examination; Z86.010 Personal history of colon polyps; K92.1 Melena
CPT/HCPCS: 36415; 85025; 93005; U0002

== ENCOUNTER → 2021-03-08 | Day surgery (SDC) | payer MEDICARE, OTHER ==
[2021-03-03 09:06] LABS: BASOPHILS % 0.4 % (0.0-1.0); EOSINOPHILS # (AUTO) 0.1 (0.0-0.4); EOSINOPHILS % 1.5 % (0.0-6.0); HEMATOCRIT 33.8 % (38.2-49.6); HEMOGLOBIN 11.4 g/dL (14.0-18.0); LYMPHOCYTES # (AUTO) 1.3 (1.0-3.2); LYMPHOCYTES % 17.9 % (18.0-39.1); MEAN CORPUSCULAR HEMOGLOBIN 32.3 pg (28-32); MEAN CORPUSCULAR HGB CONC 33.7 g/dL (31-35); MEAN CORPUSCULAR VOLUME 95.8 fL (81-99); MONOCYTES % 13.7 % (4.4-11.3); NEUTROPHILS # (AUTO) 4.7 (2.1-6.9); NEUTROPHILS % 66.2 % (38.7-80.0); PLATELET COUNT 146 x10e3/uL (140-360); RED BLOOD COUNT 3.53 x10e6/uL (4.3-5.7); RED CELL DISTRIBUTION WIDTH 11.5 % (11.7-14.4)
[2021-03-03 09:23] LABS: INR 1.04; PROTHROMBIN TIME 14.2 seconds (11.9-14.5)
[2021-03-03 09:24] LABS: PARTIAL THROMBOPLASTIN TIME 39.1 seconds (23.8-35.5)
[2021-03-03 09:43] LABS: ALBUMIN 3.9 g/dL (3.5-5.0); ANION GAP 17.8 mmol/L (8-16); CALCIUM 9.9 mg/dL (8.4-10.2); CREATININE, SERUM 1.67 mg/dL (0.72-1.25); POTASSIUM 4.8 mmol/L (3.5-5.1)
[2021-03-08] VITALS (11 sets, daily range): BP systolic 100–191; BP diastolic 62–78
[~2021-03-08] VITALS: Ht 170.2 cm; Wt 68.5 kg
[~2021-03-08] MED LIST changes: +ASPIRIN 325 MG TAB ONE; +CLOPIDOGREL BISULFATE 75 MG TAB ONE; +FENTANYL CITRATE/PF 100MCG/2 ML INJ ONE; +HEPARIN SOD (PORCINE) 1000 UNIT/ML 30ML ONE; +HEPARIN SOD/SOD CHLORIDE 1,000 ML ONE; +IOPAMIDOL 300MG/ML 100 ML INFUS..BTL IV ONE; +IOPAMIDOL 370 MG/ML 200 ML INFUS..BTL INJ ONE; +LIDOCAINE HCL 2% LOCAL 20 ML VIAL ONE; +MIDAZOLAM HCL 2 MG/2 ML VIAL ONE; +NITROGLYCERIN/D5W 200 MCG/ML 250 ML ONE; +SODIUM CHLORIDE 0.9% 1000ML 1,000 ML ONE; +VERAPAMIL HCL 2.5 MG/ML 2 ML VIAL ONE
== END | disposition home or self-care (01) ==
LOC: CATH LAB 05:36
PROVIDERS: ATTEND Internal Medicine Cardiovascular Disease
DX: I25.119 Atherosclerotic heart disease of native coronary artery with unspecified angina pectoris (principal); R94.39 Abnormal result of other cardiovascular function study; I70.213 Atherosclerosis of native arteries of extremities with intermittent claudication, bilateral legs; Z95.5 Presence of coronary angioplasty implant and graft; I10 Essential (primary) hypertension; E78.5 Hyperlipidemia, unspecified; E11.8 Type 2 diabetes mellitus with unspecified complications; R00.2 Palpitations; Z01.812 Encounter for preprocedural laboratory examination; Z20.822 Contact with and (suspected) exposure to COVID-19; Z79.02 Long term (current) use of antithrombotics/antiplatelets; Z79.82 Long term (current) use of aspirin
CPT/HCPCS: 93458; C9600; 36415; 80053; 85025; 85610; 85730; 92928; 99152; 99153; C1725; C1769; C1874; C1887; J1644; J2001; J2250; J3010; J7030; Q9967; U0002

== ENCOUNTER → 2021-07-24 | Day surgery (SDC) | payer MEDICARE, OTHER ==
[2021-07-20 10:17] LABS: BASOPHILS % 0.6 % (0.0-1.0); EOSINOPHILS # (AUTO) 0.2 (0.0-0.4); HEMATOCRIT 38.5 % (38.2-49.6); HEMOGLOBIN 12.2 g/dL (14.0-18.0); LYMPHOCYTES # (AUTO) 1.3 (1.0-3.2); LYMPHOCYTES % 25.3 % (18.0-39.1); MEAN CORPUSCULAR HEMOGLOBIN 31.6 pg (28-32); MEAN CORPUSCULAR HGB CONC 31.7 g/dL (31-35); MEAN CORPUSCULAR VOLUME 99.7 fL (81-99); MONOCYTES # (AUTO) 0.4 (0.2-0.8); MONOCYTES % 8.8 % (4.4-11.3); NEUTROPHILS # (AUTO) 3.1 (2.1-6.9); NEUTROPHILS % 61.9 % (38.7-80.0); PLATELET COUNT 147 x10e3/uL (140-360); RED BLOOD COUNT 3.86 x10e6/uL (4.3-5.7); RED CELL DISTRIBUTION WIDTH 11.4 % (11.7-14.4)
[2021-07-20 10:33] LABS: INR 1.05; PROTHROMBIN TIME 13.9 seconds (11.9-14.5)
[2021-07-20 10:40] LABS: ALBUMIN 4.5 g/dL (3.5-5.0); ALBUMIN/GLOBULIN RATIO 1.4 (0.8-2.0); CALCIUM 9.4 mg/dL (8.4-10.2); CREATININE, SERUM 1.75 mg/dL (0.72-1.25)
[2021-07-20 10:46] LABS: PARTIAL THROMBOPLASTIN TIME 28.6 seconds (23.8-35.5)
[~2021-07-24] VITALS: Ht 170.2 cm; Wt 68.0 kg
[~2021-07-24] MED LIST changes: -ASPIRIN 325 MG TAB ONE; +ATORVASTATIN CA20 MG PO; -CLOPIDOGREL BISULFATE 75 MG TAB ONE; -FENTANYL CITRATE/PF 100MCG/2 ML INJ ONE; -HEPARIN SOD (PORCINE) 1000 UNIT/ML 30ML ONE; -HEPARIN SOD/SOD CHLORIDE 1,000 ML ONE; -IOPAMIDOL 300MG/ML 100 ML INFUS..BTL IV ONE; -IOPAMIDOL 370 MG/ML 200 ML INFUS..BTL INJ ONE; +LIDOCAINE 1% W/EPINEPHRINE 20 ML VIAL ONE; -MIDAZOLAM HCL 2 MG/2 ML VIAL ONE; -NITROGLYCERIN/D5W 200 MCG/ML 250 ML ONE; -SODIUM CHLORIDE 0.9% 1000ML 1,000 ML ONE; -VERAPAMIL HCL 2.5 MG/ML 2 ML VIAL ONE
[2021-07-24 07:50] VITALS: BP 142/59
[2021-07-24 09:00] VITALS: BP 159/52
[2021-07-24 09:45] VITALS: BP 170/53
== END | disposition home or self-care (01) ==
LOC: CATH LAB 08:08
PROVIDERS: ATTEND Internal Medicine Cardiovascular Disease
DX: R00.1 Bradycardia, unspecified (principal); I10 Essential (primary) hypertension; E11.9 Type 2 diabetes mellitus without complications; Z01.812 Encounter for preprocedural laboratory examination; Z20.822 Contact with and (suspected) exposure to COVID-19; Z79.02 Long term (current) use of antithrombotics/antiplatelets; Z79.82 Long term (current) use of aspirin; Z79.84 Long term (current) use of oral hypoglycemic drugs
CPT/HCPCS: 33285; 36415 ×2; 80053; 82948; 85025; 85610; 85730; C1764; J2001; U0002

== ENCOUNTER → 2021-08-24 | Outpatient (CLI) | payer MEDICARE, OTHER ==
[~2021-08-24] MED LIST changes: +HEPARIN SOD (PORCINE) 1000 UNIT/ML SDV ONE; -LIDOCAINE 1% W/EPINEPHRINE 20 ML VIAL ONE; -LIDOCAINE HCL 2% LOCAL 20 ML VIAL ONE
== END ==
LOC: NM 08:13
PROVIDERS: ATTEND Internal Medicine Gastroenterology
DX: R10.10 Upper abdominal pain, unspecified (principal); K92.1 Melena
CPT/HCPCS: 78278; A9512 ×2; J1644

== ENCOUNTER → 2021-08-30 | Day surgery (SDC) | payer MEDICARE, OTHER ==
[2021-08-28 11:42] LABS: BASOPHILS % 0.6 % (0.0-1.0); EOSINOPHILS # (AUTO) 0.1 (0.0-0.4); EOSINOPHILS % 0.7 % (0.0-6.0); HEMATOCRIT 33.2 % (38.2-49.6); HEMOGLOBIN 10.8 g/dL (14.0-18.0); LYMPHOCYTES # (AUTO) 1.4 (1.0-3.2); LYMPHOCYTES % 20.1 % (18.0-39.1); MEAN CORPUSCULAR HGB CONC 32.5 g/dL (31-35); MEAN CORPUSCULAR VOLUME 98.5 fL (81-99); MONOCYTES # (AUTO) 0.5 (0.2-0.8); MONOCYTES % 7.5 % (4.4-11.3); NEUTROPHILS # (AUTO) 4.9 (2.1-6.9); NEUTROPHILS % 70.8 % (38.7-80.0); PLATELET COUNT 151 x10e3/uL (140-360); RED BLOOD COUNT 3.37 x10e6/uL (4.3-5.7); RED CELL DISTRIBUTION WIDTH 11.9 % (11.7-14.4)
[~2021-08-30] MED LIST changes: +GLUCAGON FOR INJ 1 MG VIAL ONE; -HEPARIN SOD (PORCINE) 1000 UNIT/ML SDV ONE; +HYOSCYAMINE SULFATE 0.5 MG/ML INJ ONE; +LIDOCAINE HCL 2% LOCAL INJ 5 ML SDV VIAL INJ ONE; +PROPOFOL IV EMULSION 10 MG/ML 20 ML VIAL ONE
[2021-08-30 11:00] VITALS: BP 140/88
== END | disposition home or self-care (01) ==
LOC: OR 06:41
PROVIDERS: ATTEND Internal Medicine Gastroenterology
DX: K29.70 Gastritis, unspecified, without bleeding (principal); K63.5 Polyp of colon; K20.90 Esophagitis, unspecified without bleeding; K57.30 Diverticulosis of large intestine without perforation or abscess without bleeding; K64.8 Other hemorrhoids; R19.7 Diarrhea, unspecified; I10 Essential (primary) hypertension; I25.10 Atherosclerotic heart disease of native coronary artery without angina pectoris; E11.9 Type 2 diabetes mellitus without complications; E78.00 Pure hypercholesterolemia, unspecified; Z01.812 Encounter for preprocedural laboratory examination; Z20.822 Contact with and (suspected) exposure to COVID-19; Z79.02 Long term (current) use of antithrombotics/antiplatelets; Z79.82 Long term (current) use of aspirin; Z79.84 Long term (current) use of oral hypoglycemic drugs; Z79.899 Other long term (current) drug therapy; Z98.61 Coronary angioplasty status
CPT/HCPCS: 36415 ×2; 43239; 45380; 82948; 85025; 88305; 88312; C9113; J1610; J1980; J2001; J2704; U0002; 45378

== ENCOUNTER → 2021-10-23 | Outpatient (CLI) | payer MEDICARE, OTHER ==
[~2021-10-23] MED LIST changes: -GLUCAGON FOR INJ 1 MG VIAL ONE; -HYOSCYAMINE SULFATE 0.5 MG/ML INJ ONE; -LIDOCAINE HCL 2% LOCAL INJ 5 ML SDV VIAL INJ ONE; -PROPOFOL IV EMULSION 10 MG/ML 20 ML VIAL ONE
== END ==
LOC: DX 08:08
PROVIDERS: ATTEND Internal Medicine Gastroenterology
DX: K92.1 Melena (principal); Z20.822 Contact with and (suspected) exposure to COVID-19
CPT/HCPCS: 74250; U0002

== ENCOUNTER 2022-05-30 09:07 | Emergency (ER) | payer MEDICARE, OTHER ==
[~2022-05-30] VITALS: Ht 170.2 cm; Wt 68.0 kg
[2022-05-30] MEDS ORDERED: SODIUM CHLORIDE 0.9% 1000ML 1,000 ML IV STA (09:24)
[2022-05-30] MEDS ORDERED: ONDANSETRON HCL INJ 2MG/ML 2ML 2 MG/ML VIAL IV PRN (09:30)
[2022-05-30 09:44] LABS: BASOPHILS % 0.5 % (0.0-1.0); EOSINOPHILS # (AUTO) 0.1 (0.0-0.4); EOSINOPHILS % 1.9 % (0.0-6.0); HEMATOCRIT 33.7 % (38.2-49.6); HEMOGLOBIN 11.4 g/dL (14.0-18.0); LYMPHOCYTES # (AUTO) 1.4 (1.0-3.2); LYMPHOCYTES % 22.4 % (18.0-39.1); MEAN CORPUSCULAR HEMOGLOBIN 31.6 pg (28-32); MEAN CORPUSCULAR HGB CONC 33.8 g/dL (31-35); MEAN CORPUSCULAR VOLUME 93.4 fL (81-99); MONOCYTES # (AUTO) 0.5 (0.2-0.8); MONOCYTES % 8.5 % (4.4-11.3); NEUTROPHILS # (AUTO) 4.2 (2.1-6.9); NEUTROPHILS % 66.4 % (38.7-80.0); PLATELET COUNT 126 x10e3/uL (140-360); RED BLOOD COUNT 3.61 x10e6/uL (4.3-5.7); RED CELL DISTRIBUTION WIDTH 11.5 % (11.7-14.4)
[2022-05-30 09:58] LABS: ALBUMIN/GLOBULIN RATIO 1.2 (0.8-2.0); ANION GAP 16.6 mmol/L (8-16); CALCIUM 8.9 mg/dL (8.4-10.2); CREATININE, SERUM 1.94 mg/dL (0.72-1.25); POTASSIUM 4.6 mmol/L (3.5-5.1)
[2022-05-30 12:48] LABS: CLARITY,URINE CLEAR (CLEAR); COLOR,URINE YELLOW (YELLOW); LEUKOCYTE ESTERASE ,URINE NEGATIVE (NEGATIVE); NITRITE,URINE NEGATIVE (NEGATIVE); PROTEIN,URINE DIPSTICK NEGATIVE (NEGATIVE)
[2022-05-30 12:49] LABS: KETONES,URINE NEGATIVE (NEGATIVE); URINE UROBILINOGEN 0.2 mg/dL (0.2 - 1)
[2022-05-30 13:15] LABS: BACTERIA,URINE RARE /HPF; EPITHELIAL CELLS,URINE RARE /LPF; RBC,URINE 0-5 /HPF (0-5); WBC,URINE (MAN) 0-5 /HPF (0-5)
[2022-05-30] MEDS ORDERED: ONDANSETRON ODT4 MG PO (13:23)
[2022-05-30] MEDS ORDERED: DICYCLOMINE HCL20 MG PO (13:23)
== END 2022-05-30 13:47 | disposition home or self-care (01) ==
LOC: ER 09:12
DX: R10.30 Lower abdominal pain, unspecified (principal); K57.30 Diverticulosis of large intestine without perforation or abscess without bleeding; N28.1 Cyst of kidney, acquired; N40.0 Benign prostatic hyperplasia without lower urinary tract symptoms; I10 Essential (primary) hypertension; E11.9 Type 2 diabetes mellitus without complications; E78.5 Hyperlipidemia, unspecified; I48.91 Unspecified atrial fibrillation
CPT/HCPCS: 36415; 74176; 80053; 81001; 83690; 85025; 93005; 99284; J2405; J7030

== ENCOUNTER → 2022-07-20 | Day surgery (SDC) | payer MEDICARE, OTHER ==
[2022-07-17 09:30] LABS: BASOPHILS % 0.7 % (0.0-1.0); EOSINOPHILS # (AUTO) 0.2 (0.0-0.4); EOSINOPHILS % 4.4 % (0.0-6.0); HEMATOCRIT 35.1 % (38.2-49.6); HEMOGLOBIN 11.1 g/dL (14.0-18.0); LYMPHOCYTES # (AUTO) 1.4 (1.0-3.2); LYMPHOCYTES % 25.1 % (18.0-39.1); MEAN CORPUSCULAR HEMOGLOBIN 32.3 pg (28-32); MEAN CORPUSCULAR HGB CONC 31.6 g/dL (31-35); MONOCYTES # (AUTO) 0.4 (0.2-0.8); NEUTROPHILS # (AUTO) 3.4 (2.1-6.9); NEUTROPHILS % 61.4 % (38.7-80.0); PLATELET COUNT 143 x10e3/uL (140-360); RED BLOOD COUNT 3.44 x10e6/uL (4.3-5.7); RED CELL DISTRIBUTION WIDTH 11.1 % (11.7-14.4)
[2022-07-17 09:39] LABS: INR 0.96; PROTHROMBIN TIME 13.7 seconds (11.9-14.5)
[2022-07-17 09:50] LABS: ALANINE AMINOTRANSFERASE 20 IU/L (0-55); ALBUMIN 3.8 g/dL (3.5-5.0); ALBUMIN/GLOBULIN RATIO 1.3 (0.8-2.0); ALKALINE PHOSPHATASE 121 IU/L (40-150); ANION GAP 14.2 mmol/L (8-16); BLOOD UREA NITROGEN 19 mg/dL (7-26); BUN/CREATININE RATIO 15 (6-25); CALCIUM 8.8 mg/dL (8.4-10.2); CARBON DIOXIDE 23 mmol/L (22-29); CHLORIDE 105 mmol/L (98-107); CREATININE, SERUM 1.27 mg/dL (0.72-1.25); GLUCOSE 226 mg/dL (74-118); POTASSIUM 4.2 mmol/L (3.5-5.1); SODIUM 138 mmol/L (136-145)
[~2022-07-20] VITALS: Ht 170.2 cm; Wt 68.0 kg
[2022-07-20] VITALS (11 sets, daily range): BP systolic 166–196; BP diastolic 73–116
[~2022-07-20] MED LIST changes: +DICYCLOMINE HCL20 MG PO; +FENTANYL CITRATE/PF 100MCG/2 ML INJ ONE; +GENTAMICIN SULFATE 40 MG/ML 2 ML VIAL ONE; +LIDOCAINE 1% 10 ML MULTIDOSE VIAL IJ ONE; +MIDAZOLAM HCL 2 MG/2 ML VIAL ONE; +Morphine 2mg Syringe 2 MG/ML SYR IV PRN; +ONDANSETRON ODT4 MG PO; +SODIUM CHLORIDE 0.9% 1000ML 2,000 ML ONE; +SODIUM CHLORIDE 0.9% 250ML 500 ML ONE; +Vancomycin IV 1 GM VIAL ONE
== END | disposition home or self-care (01) ==
LOC: EDSTATUS 07:00 → CATH LAB 07:20
PROVIDERS: ATTEND Internal Medicine Interventional Cardiology
DX: I49.5 Sick sinus syndrome (principal); Z45.09 Encounter for adjustment and management of other cardiac device; Z01.812 Encounter for preprocedural laboratory examination; Z20.822 Contact with and (suspected) exposure to COVID-19; Z79.82 Long term (current) use of aspirin; Z79.02 Long term (current) use of antithrombotics/antiplatelets; Z79.84 Long term (current) use of oral hypoglycemic drugs; Z79.899 Other long term (current) drug therapy
CPT/HCPCS: 0223U; 33208; 33286; 36415; 71045; 80053; 85025; 85610; C1769; J1580; J2250; J3010; J3370; J7030; J7050; 99152; 99153

== ENCOUNTER 2022-11-02 13:06 | Emergency (ER) | payer MEDICARE, OTHER ==
[~2022-11-02] VITALS: Ht 322.6 cm; Wt 68.0 kg
[~2022-11-02 13:06] MED LIST changes: +FAMOTIDINE20 MG PO; -FENTANYL CITRATE/PF 100MCG/2 ML INJ ONE; +FERROUS SULFAT325 MG PO; +FINASTERIDE5 MG PO; -GENTAMICIN SULFATE 40 MG/ML 2 ML VIAL ONE; -LIDOCAINE 1% 10 ML MULTIDOSE VIAL IJ ONE; +LOSARTAN POTAS100 MG PO; -MIDAZOLAM HCL 2 MG/2 ML VIAL ONE; -Morphine 2mg Syringe 2 MG/ML SYR IV PRN; +NEURONTIN100 MG PO; -SODIUM CHLORIDE 0.9% 1000ML 2,000 ML ONE; -SODIUM CHLORIDE 0.9% 250ML 500 ML ONE; +TRESIBA FL100 UNIT/1; +VITAMIN D325 MCG; -Vancomycin IV 1 GM VIAL ONE
[2022-11-02 14:45] LABS: BASOPHILS % 0.2 % (0.0-1.0); HEMATOCRIT 35.8 % (38.2-49.6); LYMPHOCYTES # (AUTO) 0.7 (1.0-3.2); LYMPHOCYTES % 6.1 % (18.0-39.1); MEAN CORPUSCULAR HEMOGLOBIN 31.9 pg (28-32); MEAN CORPUSCULAR HGB CONC 30.7 g/dL (31-35); MEAN CORPUSCULAR VOLUME 103.8 fL (81-99); MONOCYTES # (AUTO) 0.6 (0.2-0.8); MONOCYTES % 4.9 % (4.4-11.3); NEUTROPHILS # (AUTO) 10.6 (2.1-6.9); NEUTROPHILS % 88.5 % (38.7-80.0); PLATELET COUNT 125 x10e3/uL (140-360); RED BLOOD COUNT 3.45 x10e6/uL (4.3-5.7); RED CELL DISTRIBUTION WIDTH 10.8 % (11.7-14.4)
[2022-11-02 15:03] LABS: ALBUMIN 4.2 g/dL (3.5-5.0); ALBUMIN/GLOBULIN RATIO 1.1 (0.8-2.0); ANION GAP 19.2 mmol/L (8-16); CALCIUM 9.5 mg/dL (8.4-10.2); CREATININE, SERUM 1.6 mg/dL (0.72-1.25); POTASSIUM 4.2 mmol/L (3.5-5.1)
[2022-11-02] MEDS ORDERED: ONDANSETRON HCL INJ 2MG/ML 2ML 2 MG/ML VIAL IV STA (16:49)
[2022-11-02] MEDS ORDERED: FENTANYL CITRATE/PF 100MCG/2 ML INJ IV ONE (17:00)
[2022-11-02] MEDS ORDERED: HYDROCODONE/APAP 7.5MG-325MG 1 EA TAB PO PRN (17:15)
[2022-11-02 17:56] VITALS: BP 168/98
[2022-11-02] MEDS ORDERED: DITROPAN XL5 MG PO (17:57)
== END 2022-11-02 18:55 | disposition home or self-care (01) ==
LOC: ER 13:15
DX: Z46.6 Encounter for fitting and adjustment of urinary device (principal); R31.9 Hematuria, unspecified; N40.0 Benign prostatic hyperplasia without lower urinary tract symptoms; E11.65 Type 2 diabetes mellitus with hyperglycemia; I10 Essential (primary) hypertension; E78.5 Hyperlipidemia, unspecified; I48.91 Unspecified atrial fibrillation; Z95.810 Presence of automatic (implantable) cardiac defibrillator; Z95.5 Presence of coronary angioplasty implant and graft
CPT/HCPCS: 36415; 80053; 85025; 99283

== ENCOUNTER → 2023-01-15 | Day surgery (SDC) | payer MEDICARE, OTHER ==
[2023-01-10 13:46] LABS: BASOPHILS % 0.6 % (0.0-1.0); EOSINOPHILS # (AUTO) 0.1 (0.0-0.4); EOSINOPHILS % 1.2 % (0.0-6.0); HEMATOCRIT 35.8 % (38.2-49.6); HEMOGLOBIN 11.5 g/dL (14.0-18.0); LYMPHOCYTES % 28.6 % (18.0-39.1); MEAN CORPUSCULAR HEMOGLOBIN 31.9 pg (28-32); MEAN CORPUSCULAR HGB CONC 32.1 g/dL (31-35); MEAN CORPUSCULAR VOLUME 99.4 fL (81-99); MONOCYTES # (AUTO) 0.5 (0.2-0.8); MONOCYTES % 7.7 % (4.4-11.3); NEUTROPHILS # (AUTO) 4.3 (2.1-6.9); NEUTROPHILS % 61.6 % (38.7-80.0); PLATELET COUNT 141 x10e3/uL (140-360); RED CELL DISTRIBUTION WIDTH 11.8 % (11.7-14.4)
[2023-01-10 14:13] LABS: ANION GAP 15.6 mmol/L (8-16); CALCIUM 9.4 mg/dL (8.4-10.2); CREATININE, SERUM 1.57 mg/dL (0.72-1.25); POTASSIUM 5.6 mmol/L (3.5-5.1)
[~2023-01-15] MED LIST changes: +ACETAMINOPHEN-1 EAC4 PO; +BUPIVACAINE 0.25% 30ML SDV ONE; +DITROPAN XL5 MG PO; +EPHEDRINE SULFATE INJ 50 MG/ML VIAL ONE; +FENTANYL CITRATE/PF 100MCG/2 ML INJ ONE; +LACTATED RINGER'S 1,000 ML ONE; +LIDOCAINE HCL 2% LOCAL INJ 5 ML SDV VIAL INJ ONE; +MUPIROCIN 2% OINT 22 GM TUBE ONE; +PHENYLEPHRINE HCL 1% 10 MG/ML VIAL ONE; +POVIDONE IODINE 0.05% 0.05 % ML PO ONE; +PROPOFOL IV EMULSION 10 MG/ML 20 ML VIAL ONE; +SEVOFLURANE INHAL SOLN 250 ML PEN BTL ONE; -TRESIBA FL100 UNIT/1; +TRESIBA FL100 UNIT/1 SC
[2023-01-15 09:50] VITALS: BP 158/80
== END | disposition home or self-care (01) ==
LOC: OR 07:34
PROVIDERS: ATTEND Plastic Surgery
DX: S50.02XA Contusion of left elbow, initial encounter (principal); I10 Essential (primary) hypertension; I49.5 Sick sinus syndrome; I70.213 Atherosclerosis of native arteries of extremities with intermittent claudication, bilateral legs; I25.10 Atherosclerotic heart disease of native coronary artery without angina pectoris; E78.5 Hyperlipidemia, unspecified; E11.8 Type 2 diabetes mellitus with unspecified complications; R07.9 Chest pain, unspecified; X58.XXXA Exposure to other specified factors, initial encounter; Z01.812 Encounter for preprocedural laboratory examination; Z79.02 Long term (current) use of antithrombotics/antiplatelets; Z79.82 Long term (current) use of aspirin; Z79.4 Long term (current) use of insulin; Z79.899 Other long term (current) drug therapy; Z95.0 Presence of cardiac pacemaker
CPT/HCPCS: 10140; 36415 ×2; 80048; 82948; 84132; 85025; J0690; J2001; J2370; J2704; J3010; J7121

== ENCOUNTER → 2023-02-07 | Day surgery (SDC) | payer MEDICARE, OTHER ==
[~2023-02-07] MED LIST changes: -BUPIVACAINE 0.25% 30ML SDV ONE; +BUPIVACAINE HCL 0.5% INJ 30 ML VIAL INJ ONE; +DEXAMETHASONE SOD PHOS INJ 4 MG/ML SDV ONE; -EPHEDRINE SULFATE INJ 50 MG/ML VIAL ONE; +LATANOPROST2.5 ML OP; +ONDANSETRON HCL INJ 2MG/ML 2ML 2 MG/ML VIAL ONE; -PHENYLEPHRINE HCL 1% 10 MG/ML VIAL ONE
[2023-02-07 08:35] VITALS: BP 153/76
== END | disposition home or self-care (01) ==
LOC: OR 06:36
PROVIDERS: ATTEND Plastic Surgery
DX: G56.22 Lesion of ulnar nerve, left upper limb (principal); G56.02 Carpal tunnel syndrome, left upper limb; M65.842 Other synovitis and tenosynovitis, left hand; Z79.02 Long term (current) use of antithrombotics/antiplatelets; Z79.82 Long term (current) use of aspirin; Z79.4 Long term (current) use of insulin
CPT/HCPCS: 64718; J0690; J1100; J2001; J2405; J2704; J3010; J7121

== ENCOUNTER → 2023-10-28 | Day surgery (SDC) | payer MEDICARE, OTHER ==
[2023-10-23 08:22] LABS: BASOPHILS % 0.4 % (0.0-1.0); EOSINOPHILS # (AUTO) 0.1 (0.0-0.4); EOSINOPHILS % 2.1 % (0.0-6.0); HEMATOCRIT 32.6 % (38.2-49.6); HEMOGLOBIN 10.7 g/dL (14.0-18.0); LYMPHOCYTES # (AUTO) 1.2 (1.0-3.2); LYMPHOCYTES % 21.7 % (18.0-39.1); MEAN CORPUSCULAR HEMOGLOBIN 32.4 pg (28-32); MEAN CORPUSCULAR HGB CONC 32.8 g/dL (31-35); MEAN CORPUSCULAR VOLUME 98.8 fL (81-99); MONOCYTES # (AUTO) 0.4 (0.2-0.8); MONOCYTES % 7.4 % (4.4-11.3); NEUTROPHILS # (AUTO) 3.6 (2.1-6.9); PLATELET COUNT 142 x10e3/uL (140-360); RED CELL DISTRIBUTION WIDTH 11.3 % (11.7-14.4); WHITE BLOOD COUNT 5.29 x10e3/uL (4.8-10.8)
[~2023-10-28] MED LIST changes: -BUPIVACAINE HCL 0.5% INJ 30 ML VIAL INJ ONE; -DEXAMETHASONE SOD PHOS INJ 4 MG/ML SDV ONE; +DEXTROSE 5% 250ML 250 ML IV ONE; -FENTANYL CITRATE/PF 100MCG/2 ML INJ ONE; -MUPIROCIN 2% OINT 22 GM TUBE ONE; -ONDANSETRON HCL INJ 2MG/ML 2ML 2 MG/ML VIAL ONE; -POVIDONE IODINE 0.05% 0.05 % ML PO ONE; +PROTONIX20 MG PO; -SEVOFLURANE INHAL SOLN 250 ML PEN BTL ONE; +TIMOPTIC 0.5%1 EACH OU
[2023-10-28 09:42] VITALS: TEMP 97.7
[2023-10-28 10:20] VITALS: BP 147/76; PULSE 63; RESP 17; O2SAT 98
== END | disposition home or self-care (01) ==
LOC: OR 08:18
PROVIDERS: ATTEND Internal Medicine Gastroenterology
DX: K29.01 Acute gastritis with bleeding (principal); K29.50 Unspecified chronic gastritis without bleeding; K44.9 Diaphragmatic hernia without obstruction or gangrene; K21.9 Gastro-esophageal reflux disease without esophagitis; D64.9 Anemia, unspecified; I10 Essential (primary) hypertension; E78.5 Hyperlipidemia, unspecified; I25.10 Atherosclerotic heart disease of native coronary artery without angina pectoris; Z01.812 Encounter for preprocedural laboratory examination; E11.9 Type 2 diabetes mellitus without complications; Z79.02 Long term (current) use of antithrombotics/antiplatelets; Z79.82 Long term (current) use of aspirin; Z79.4 Long term (current) use of insulin; Z79.84 Long term (current) use of oral hypoglycemic drugs; Z95.0 Presence of cardiac pacemaker
CPT/HCPCS: 36415 ×2; 43239; 82948; 85025; 88305; 88342; C9113; J2001; J2704; J7070; J7121

== ENCOUNTER 2024-07-25 07:44 | Emergency (ER) | payer MEDICARE, OTHER ==
[~2024-07-25] VITALS: Ht 322.6 cm; Wt 68.0 kg
[~2024-07-25 07:44] MED LIST changes: -DEXTROSE 5% 250ML 250 ML IV ONE; -LACTATED RINGER'S 1,000 ML ONE; -LIDOCAINE HCL 2% LOCAL INJ 5 ML SDV VIAL INJ ONE; -PROPOFOL IV EMULSION 10 MG/ML 20 ML VIAL ONE
[2024-07-25 08:53] LABS: BASOPHILS % 0.6 % (0.0-1.0); EOSINOPHILS # (AUTO) 0.1 (0.0-0.4); HEMOGLOBIN 10.7 g/dL (14.0-18.0); LYMPHOCYTES # (AUTO) 1.4 (1.0-3.2); LYMPHOCYTES % 27.1 % (18.0-39.1); MEAN CORPUSCULAR HGB CONC 32.4 g/dL (31-35); MEAN CORPUSCULAR VOLUME 101.9 fL (81-99); MONOCYTES # (AUTO) 0.4 (0.2-0.8); MONOCYTES % 8.1 % (4.4-11.3); NEUTROPHILS # (AUTO) 3.1 (2.1-6.9); PLATELET COUNT 132 x10e3/uL (140-360); RED BLOOD COUNT 3.24 x10e6/uL (4.3-5.7); RED CELL DISTRIBUTION WIDTH 11.3 % (11.7-14.4); WHITE BLOOD COUNT 5.06 x10e3/uL (4.8-10.8)
[2024-07-25 08:57] LABS: INR 1.06; PROTHROMBIN TIME 14.3 seconds (11.9-14.5)
[2024-07-25 08:58] LABS: PARTIAL THROMBOPLASTIN TIME 31.5 seconds (23.8-35.5)
[2024-07-25 09:07] LABS: ALBUMIN 4.2 g/dL (3.5-5.0); ALBUMIN/GLOBULIN RATIO 1.4 (0.8-2.0); ANION GAP 13.4 mmol/L (8-16); BILIRUBIN,TOTAL 0.9 mg/dL (0.2-1.2); CALCIUM 9.3 mg/dL (8.4-10.2); CREATININE, SERUM 1.92 mg/dL (0.72-1.25); POTASSIUM 4.4 mmol/L (3.5-5.1); TOTAL PROTEIN 7.3 g/dL (6.5-8.1)
[2024-07-25] MEDS ORDERED: IOPAMIDOL 370 MG/ML 100 ML INFUS..BTL INJ ONE (09:26)
[2024-07-25] MEDS: SODIUM CHLORIDE 0.9% 1000ML 1,000 ML IV ONE (10:14)
[2024-07-25 12:24] VITALS: PULSE 65; RESP 16; TEMP 98.1; O2SAT 98
[2024-07-25] MEDS ORDERED: MEDROL4 M2 PO (12:37)
== END 2024-07-25 13:32 | disposition home or self-care (01) ==
LOC: ER 08:00
DX: R04.2 Hemoptysis (principal); R09.A2 Foreign body sensation, throat; E11.65 Type 2 diabetes mellitus with hyperglycemia; I10 Essential (primary) hypertension; E78.5 Hyperlipidemia, unspecified; I48.91 Unspecified atrial fibrillation; Z95.810 Presence of automatic (implantable) cardiac defibrillator
CPT/HCPCS: 36415; 70490; 80053; 85025; 85610; 85730; 99284; J7030; Q9967

== ENCOUNTER 2024-08-23 12:17 | Observation (INO) | payer MEDICARE, OTHER ==
[~2024-08-23] VITALS: Ht 167.6 cm; Wt 68.0 kg
[~2024-08-23 12:17] MED LIST changes: +MEDROL4 M2 PO
[2024-08-23 12:19] VITALS: TEMP 97.9
[2024-08-23 12:56] LABS: BASOPHILS % 0.5 % (0.0-1.0); EOSINOPHILS # (AUTO) 0.1 (0.0-0.4); EOSINOPHILS % 2.2 % (0.0-6.0); HEMATOCRIT 31.9 % (38.2-49.6); HEMOGLOBIN 10.1 g/dL (14.0-18.0); LYMPHOCYTES # (AUTO) 1.4 (1.0-3.2); LYMPHOCYTES % 23.3 % (18.0-39.1); MEAN CORPUSCULAR HEMOGLOBIN 32.7 pg (28-32); MEAN CORPUSCULAR HGB CONC 31.7 g/dL (31-35); MEAN CORPUSCULAR VOLUME 103.2 fL (81-99); MONOCYTES # (AUTO) 0.4 (0.2-0.8); MONOCYTES % 7.2 % (4.4-11.3); NEUTROPHILS # (AUTO) 3.9 (2.1-6.9); NEUTROPHILS % 66.6 % (38.7-80.0); PLATELET COUNT 162 x10e3/uL (140-360); RED BLOOD COUNT 3.09 x10e6/uL (4.3-5.7); RED CELL DISTRIBUTION WIDTH 11.4 % (11.7-14.4); WHITE BLOOD COUNT 5.87 x10e3/uL (4.8-10.8)
[2024-08-23 13:14] LABS: ALANINE AMINOTRANSFERASE 25 IU/L (0-55); ALBUMIN 3.8 g/dL (3.5-5.0); ALBUMIN/GLOBULIN RATIO 1.2 (0.8-2.0); ALKALINE PHOSPHATASE 157 IU/L (40-150); ANION GAP 13.5 mmol/L (8-16); BILIRUBIN,TOTAL 0.8 mg/dL (0.2-1.2); BLOOD UREA NITROGEN 31 mg/dL (7-26); BUN/CREATININE RATIO 19 (6-25); CALCIUM 9.5 mg/dL (8.4-10.2); CARBON DIOXIDE 23 mmol/L (22-29); CHLORIDE 105 mmol/L (98-107); CREATININE, SERUM 1.66 mg/dL (0.72-1.25); EST GLOMERULAR FILTRATION RATE 41 ML/MIN (>=60); GLUCOSE 237 mg/dL (74-118); POTASSIUM 4.5 mmol/L (3.5-5.1); SODIUM 137 mmol/L (136-145); TOTAL PROTEIN 7.1 g/dL (6.5-8.1)
[2024-08-23 13:15] LABS: TROPONIN I < 0.05 ng/mL (0.0-0.40)
[2024-08-23 14:20] VITALS: PULSE 64; RESP 18; O2SAT 97
[2024-08-23 15:28] VITALS: PULSE 72; RESP 18
[2024-08-23] MEDS: ASPIRIN 81 MG CHEW TAB PO ONE (16:18)
[2024-08-23 20:00] VITALS: BP 156/71; PULSE 60; RESP 17; TEMP 97.9; O2SAT 97
[2024-08-23 20:05] VITALS: BP 167/89; PULSE 64; RESP 18; O2SAT 97
[2024-08-23 20:25] VITALS: PULSE 63; RESP 18; O2SAT 97
[2024-08-23] MEDS ORDERED: VITAMIN C1000 MG PO (22:23)
[2024-08-23 23:14] LABS: CREATINE KINASE 108 IU/L (30-200)
[2024-08-23 23:33] LABS: TROPONIN I < 0.05 ng/mL (0.0-0.40)
[2024-08-24] VITALS (8 sets, daily range): BP systolic 137–167; BP diastolic 59–89; PULSE 0–84; RESP 16–18; TEMP 97.3–97.9; O2SAT 96–98
[2024-08-24 07:03] LABS: CREATINE KINASE 93 IU/L (30-200)
[2024-08-24 07:58] LABS: TROPONIN I < 0.001 ng/mL (0-0.300)
[2024-08-24] MEDS: ATORVASTATIN 40 MG TAB PO SCH (08:54)
[2024-08-24] MEDS: ASPIRIN 81 MG ENTERIC COATED PO SCH (08:54)
[2024-08-24] MEDS: LOSARTAN POTASSIUM 100 MG TAB PO SCH (08:54)
[2024-08-24] MEDS: FAMOTIDINE 20 MG TAB PO SCH (08:54)
[2024-08-24] MEDS: CLOPIDOGREL BISULFATE 75 MG TAB PO SCH (08:54)
[2024-08-24] MEDS ORDERED: FAMOTIDINE 20 MG TAB PO SCH ×2 (09:00)
[2024-08-24 14:31] LABS: TROPONIN I 0.001 ng/mL (0-0.300)
== END 2024-08-24 15:23 | disposition home or self-care (01) ==
LOC: ER 12:31 → ERHOLD 13:34 → MED/SURG3 18:25
PROVIDERS: ADMIT Internal Medicine; ATTEND Family Medicine Adult Medicine
DX: R07.89 Other chest pain (principal); E78.5 Hyperlipidemia, unspecified; E11.22 Type 2 diabetes mellitus with diabetic chronic kidney disease; I12.9 Hypertensive chronic kidney disease with stage 1 through stage 4 chronic kidney disease, or unspecified chronic kidney disease; N18.32 Chronic kidney disease, stage 3b; Z79.4 Long term (current) use of insulin; D63.1 Anemia in chronic kidney disease; K21.9 Gastro-esophageal reflux disease without esophagitis; Z95.5 Presence of coronary angioplasty implant and graft; Z95.0 Presence of cardiac pacemaker; I49.5 Sick sinus syndrome
CPT/HCPCS: 36415; 71045; 80053; 82550 ×2; 82948 ×2; 84484 ×2; 85025; 93005; 94799 ×2; G0378 ×2

== ENCOUNTER → 2024-09-22 | Outpatient (REF) | payer MEDICARE, OTHER ==
[~2024-09-22] MED LIST changes: +VITAMIN C1000 MG PO
== END ==
LOC: US 07:34
PROVIDERS: ATTEND Nurse Practitioner
DX: R10.84 Generalized abdominal pain (principal); K29.70 Gastritis, unspecified, without bleeding; I10 Essential (primary) hypertension
CPT/HCPCS: 76700; 76856

== ENCOUNTER 2024-11-19 09:45 | Emergency (ER) | payer MEDICARE, OTHER ==
[~2024-11-19] VITALS: Ht 167.6 cm; Wt 68.0 kg
[2024-11-19 09:50] VITALS: TEMP 97.5
[2024-11-19] MEDS ORDERED: SODIUM CHLORIDE FLUSH 10 ML SYR IV PRN (10:15)
[2024-11-19 11:28] LABS: BASOPHILS % 0.5 % (0.0-1.0); EOSINOPHILS # (AUTO) 0.1 (0.0-0.4); EOSINOPHILS % 1.4 % (0.0-6.0); HEMATOCRIT 34.8 % (38.2-49.6); HEMOGLOBIN 11.6 g/dL (14.0-18.0); LYMPHOCYTES # (AUTO) 1.6 (1.0-3.2); MEAN CORPUSCULAR HGB CONC 33.3 g/dL (31-35); MEAN CORPUSCULAR VOLUME 99.1 fL (81-99); MONOCYTES # (AUTO) 0.7 (0.2-0.8); MONOCYTES % 11.8 % (4.4-11.3); NEUTROPHILS # (AUTO) 3.8 (2.1-6.9); NEUTROPHILS % 60.8 % (38.7-80.0); PLATELET COUNT 94 x10e3/uL (140-360); RED BLOOD COUNT 3.51 x10e6/uL (4.3-5.7); RED CELL DISTRIBUTION WIDTH 11.1 % (11.7-14.4); WHITE BLOOD COUNT 6.29 x10e3/uL (4.8-10.8)
[2024-11-19 11:46] LABS: ALANINE AMINOTRANSFERASE 16 IU/L (0-55); ALBUMIN 4.1 g/dL (3.5-5.0); ALBUMIN/GLOBULIN RATIO 1.4 (0.8-2.0); ALKALINE PHOSPHATASE 106 IU/L (40-150); ANION GAP 14.5 mmol/L (8-16); BILIRUBIN,TOTAL 1.2 mg/dL (0.2-1.2); BLOOD UREA NITROGEN 27 mg/dL (7-26); BUN/CREATININE RATIO 14 (6-25); CALCIUM 8.8 mg/dL (8.4-10.2); CARBON DIOXIDE 21 mmol/L (22-29); CHLORIDE 98 mmol/L (98-107); CREATININE, SERUM 1.87 mg/dL (0.72-1.25); EST GLOMERULAR FILTRATION RATE 36 ML/MIN (>=60); GLUCOSE 179 mg/dL (74-118); POTASSIUM 4.5 mmol/L (3.5-5.1); SODIUM 129 mmol/L (136-145)
[2024-11-19] MEDS: IBUPROFEN 400 MG TAB PO ONE (11:49)
[2024-11-19 11:52] LABS: TROPONIN I < 0.001 ng/mL (0-0.300)
[2024-11-19 12:15] LABS: BILIRUBIN,URINE NEGATIVE (NEGATIVE); CLARITY,URINE CLEAR (CLEAR); COLOR,URINE YELLOW (YELLOW); GLUCOSE, URINE NEGATIVE (NEGATIVE); KETONES,URINE NEGATIVE (NEGATIVE); LEUKOCYTE ESTERASE ,URINE NEGATIVE (NEGATIVE); NITRITE,URINE NEGATIVE (NEGATIVE); PH,URINE 6 (5 - 7); PROTEIN,URINE DIPSTICK NEGATIVE (NEGATIVE); URINE UROBILINOGEN 0.2 mg/dL (0.2 - 1)
[2024-11-19 12:16] LABS: BACTERIA,URINE FEW /HPF; RBC,URINE 0-5 /HPF (0-5)
[2024-11-19 12:17] LABS: EPITHELIAL CELLS,URINE FEW /LPF
[2024-11-19 12:30] LABS: EOSINOPHILS % (MANUAL) 1 % (0-7); LYMPHOCYTES % (MANUAL) 27 % (19-48); MONOCYTES % (MANUAL) 11 % (3.4-9.0); NEUTROPHILS % (MANUAL) 61 % (40-74); PLATELET ESTIMATE MODERATELY DECREASED; PLATELET MORPHOLOGY COMMENT NORMAL; RBC MORPHOLOGY COMMENT NORMAL
[2024-11-19 12:51] VITALS: RESP 12
[2024-11-19] MEDS: SODIUM CHLORIDE 0.9% 1000ML 1,000 ML IV ONE (13:09)
[2024-11-19 16:25] VITALS: PULSE 91; O2SAT 97
[2024-11-19 16:34] LABS: BASOPHILS % 0.5 % (0.0-1.0); EOSINOPHILS # (AUTO) 0.1 (0.0-0.4); EOSINOPHILS % 1.2 % (0.0-6.0); HEMATOCRIT 33.9 % (38.2-49.6); HEMOGLOBIN 11.4 g/dL (14.0-18.0); LYMPHOCYTES # (AUTO) 2.2 (1.0-3.2); LYMPHOCYTES % 28.8 % (18.0-39.1); MEAN CORPUSCULAR HGB CONC 33.6 g/dL (31-35); MEAN CORPUSCULAR VOLUME 98.3 fL (81-99); MONOCYTES # (AUTO) 0.9 (0.2-0.8); MONOCYTES % 12.2 % (4.4-11.3); NEUTROPHILS # (AUTO) 4.4 (2.1-6.9); PLATELET COUNT 117 x10e3/uL (140-360); RED BLOOD COUNT 3.45 x10e6/uL (4.3-5.7); RED CELL DISTRIBUTION WIDTH 11.2 % (11.7-14.4); WHITE BLOOD COUNT 7.71 x10e3/uL (4.8-10.8)
[2024-11-19 17:12] LABS: ANION GAP 15.3 mmol/L (8-16); CALCIUM 9.3 mg/dL (8.4-10.2); CREATININE, SERUM 1.79 mg/dL (0.72-1.25); POTASSIUM 4.3 mmol/L (3.5-5.1)
== END 2024-11-19 18:03 | disposition home or self-care (01) ==
LOC: ER 10:07
DX: R07.89 Other chest pain (principal); M79.18 Myalgia, other site; D69.6 Thrombocytopenia, unspecified; E11.65 Type 2 diabetes mellitus with hyperglycemia; I10 Essential (primary) hypertension; E78.5 Hyperlipidemia, unspecified; I48.91 Unspecified atrial fibrillation; I25.10 Atherosclerotic heart disease of native coronary artery without angina pectoris; Z95.810 Presence of automatic (implantable) cardiac defibrillator
CPT/HCPCS: 36415; 71046; 80053; 81001; 82550; 84484; 85025; 93005; 94760; 99284; J7030; 80048